=== PATIENT | female | born 1935 | race Caucasian/White ===

== ENCOUNTER 2016-09-08 18:10 | Emergency (ER) | payer MEDICARE, OTHER ==
[2016-09-08] MEDS ORDERED: 0.9% SODIUM CHLORIDE 250ML BAG IV ONE (19:23)
--- NOTE | 2016-09-08 19:29 | Emergency Department Record ---
History of Present Illness - General Chief Complaint: Fall Injury Stated Complaint: FALL INJURY PAIN RIGHT SHOULDER Time Seen by Provider: 09/08/16 18:23 Source: Family Mode of Arrival: Wheelchair - History of Present Illness Initial Comments: History per ; the patient is homebound in a wheelchair with strict instructions to not ambulate. While her was out of the room she decided to get up and make coffee in the kitchen when she fell. She was found minutes later by the complaining of right shoulder and right hip pain but alert and at her baseline, not more confused, and not diaphoretic. 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 He states she is on xaralto. She is responding to questions about where she hurts, denies hitting her head or neck pain. MD Complaint: Fall Onset/Timin -: Hour(s) Fall From: Standing When Fall Occurred: 1 hour MUSIC COMPOSER Fall Witnessed: No Place Fall Occurred: Home Loss of Consciousness: None Prolonged Down Time?: No Symptoms Prior to Fall: None Severity: Moderate Quality: Aching Context: Other Associated Symptoms: Unable to walk - Sarah Coma Scale Eye Response: (4) Open spontaneously Motor Response: (6) Obeys commands Verbal Response: (5) Oriented Amelia Total: 15 - Related Data Home Medications Medication Instructions Recorded Confirmed Last Taken Ascorbic Acid [Vitamin C] 1,000 mg PO BID 12/21/14 09/08/16 09/08/16 Cholecalciferol (Vitamin D3) 5,000 unit PO DAILY 12/21/14 09/08/16 09/08/16 [Vitamin D3] Cyanocobalamin (Vitamin B-12) 2,500 mcg SL DAILY 12/21/14 09/08/16 09/08/16 [Vitamin B-12] Losartan Potassium [Cozaar] 25 mg PO BID 12/21/14 09/08/16 09/08/16 Multivitamin [Multi-Vitamin Daily] 1 tab PO DAILY 12/21/14 09/08/16 09/08/16 Digoxin 125 mcg PO DAILY 02/04/15 09/08/16 09/08/16 Ferrous Sulfate [Iron] 325 mg PO DAILY 02/04/15 09/08/16 09/08/16 Gabapentin [Neurontin] 300 mg PO TID 02/04/15 09/08/16 09/08/16 Simvastatin [Zocor] 20 mg PO QHS 02/04/15 09/08/16 09/07/16 Polyethylene Glycol 3350 [Miralax] 17 gm PO DAILY 04/25/15 09/08/16 09/08/16 Rivaroxaban [Xarelto] 20 mg PO DAILY 04/25/15 09/08/16 09/08/16 Escitalopram Oxalate 10 mg PO QD tab 08/02/15 09/08/16 09/07/16 Famotidine 20 mg PO BID tab 08/02/15 09/08/16 09/08/16 Nitroglycerin 0.4 mg SL ONCE tab 08/02/15 09/08/16 1 Day Ago ~11/18/15 Insulin Glargine,Hum.rec.anlog 25 unit SQ ASDIR 11/19/15 09/08/16 09/08/16 [Lantus Solostar] Aspirin 81 mg PO QD tab.chew 09/04/16 09/08/16 09/08/16 Cranberry Fruit Extract [Cranberry] 500 mg PO DAILY tab 09/04/16 09/08/1609/08 Glucosamine Sulfate Dipot Chlr 1,500 mg PO DAILY tab 09/04/16 09/08/16 09/08/16 [Glucosamine] Niacinamide [Niacin] 500 mg PO DAILY tab 09/04/16 09/08/16 09/08/16 Raloxifene HCl [Evista] 60 mg PO DAILY tab 09/04/16 09/08/16 09/08/16 Ranolazine [Ranexa] 500 mg PO BID 14 Days 09/04/16 09/08/16 09/08/16 Rivastigmine [Exelon] 9.5 mg TD QD patch 09/04/16 09/08/16 09/08/16 Vitamin E (Dl,Tocopheryl Acet) 400 unit PO DAILY cap 09/04/16 09/08/16 09/08/16 [Vitamin E] Allergies Allergy/AdvReac Type Severity Reaction Status Date / Time lisinopril Allergy Mild cough Unverified 09/04/16 16:18 codeine Allergy Unknown PT UNSURE Unverified 09/04/16 16:18 OF REACTION meperidine HCl [From Demerol] Allergy Unknown PT UNSURE Unverified 09/04/16 16: 18 OF REACTION Penicillins Allergy Unknown PT UNSURE Unverified 09/04/16 16:18 OF REACTION Travel Screening - Travel/Exposure Within Last 30 Days Have you traveled within the last 30 days?: No - Travel Symptoms Symptom Screening: None Review of Systems Reviewed: No additional complaints except as noted below Constitutional: Reports: As per HPI. Denies: Chills, Fever, Malaise, Night sweats, Weakness, Weight change Eyes: Reports: As per HPI. Denies: Eye discharge, Eye pain, Photophobia, Vision change ENT: Reports: As per HPI. Denies: Congestion, Dental pain, Ear pain, Epistaxis , Hearing loss, Throat pain Respiratory: Reports: As per HPI. Denies: Cough, Dyspnea, Hemoptysis, Stridor, Wheezes Cardiovascular: Reports: As per HPI. Denies: Arrhythmia, Chest pain, Dyspnea on exertion, Edema, Murmurs, Orthopnea, Palpitations, Paroxysmal nocturnal dyspnea, Rheumatic Fever, Syncope Endocrine: Reports: As per HPI. Denies: Fatigue, Heat or cold intolerance, Polydipsia, Polyuria Gastrointestinal: Reports: As per HPI. Denies: Abdominal pain, Constipation, Diarrhea, Hematemesis, Hematochezia, Melena, Nausea, Vomiting Genitourinary: Reports: As per HPI. Denies: Abnormal menses, Discharge, Dyspareunia, Dysuria, Frequency, Hematuria, Incontinence, Retention, Urgency Musculoskeletal: Reports: As per HPI. Denies: Arthralgia, Back pain, Gout, Joint swelling, Myalgia, Neck pain Skin: Reports: As per HPI. Denies: Bruising, Change in color, Change in hair/ nails, Lesions, Pruritus, Rash Neurological: Reports: As per HPI. Denies: Abnormal gait, Confusion, Headache, Numbness, Paresthesias, Seizure, Tingling, Tremors, Vertigo, Weakness Psychiatric: Reports: As per HPI. Denies: Anxiety, Auditory hallucinations, Depression, Homicidal thoughts, Suicidal thoughts, Visual hallucinations Hematological/Lymphatic: Reports: As per HPI. Denies: Anemia, Blood Clots, Easy bleeding, Easy bruising, Swollen glands Past Medical History - SOCIAL HISTORY Smoking Status: Never smoker Drug Use: None - RESPIRATORY Hx Respiratory Disorders: No - CARDIOVASCULAR Hx Cardio Disorders: Yes Hx Chest Pain: Yes (double by-pass) Comment:: Aneurysm, serotonin fever post surgery 2015, in hospital 225 days - NEURO Hx Neuro Disorders: Yes Hx Dementia: Yes Hx TIA: Yes (1999) - GI Hx GI Disorders: No - Hx Genitourinary Disorders: Yes Hx Bladder Problem: Yes (Bladder mesh) Hx UTI: Yes - ENDOCRINE Hx Endocrine Disorders: Yes Hx Diabetes: Yes (type II) - MUSCULOSKELETAL Hx Musculoskeletal Disorders: Yes Hx Arthritis: Yes - PSYCH Hx Psych Problems: Yes Hx Depression: Yes - HEMATOLOGY/ONCOLOGY Hx Hematology/Oncology Disorders: No Family Medical History Hx Heart Disease: Mother Physical Exam - General General Appearance: Alert, Cooperative, No acute distress - Head Head exam: Atraumatic, Normal inspection Head exam detail: negative: Abrasion, Contusion, Britt's sign, CSF otorrhea, CSF rhinorrhea, General tenderness, Hematoma, Laceration, [place] eyes - Eye Eye exam: Normal appearance, PERRL Pupils: Normal accommodation - ENT ENT exam: Normal exam, Mucous membranes moist, Normal external ear exam, Normal orophraynx, TM's normal bilaterally Ear exam: Normal external inspection. negative: External canal tenderness Nasal Exam: Normal inspection. negative: Discharge, Sinus tenderness Mouth exam: Normal external inspection, Tongue normal Teeth exam: Normal inspection. negative: Dental caries Throat exam: Normal inspection. negative: Tonsillar erythema, Tonsillar exudate - Neck Neck exam: Normal inspection, Full ROM. negative: Lymphadenopathy, Meningismus , Tenderness - Respiratory Respiratory exam: Normal lung sounds bilaterally, Other (ribs nontender on palpation). negative: Chest wall tenderness, Respiratory distress - Cardiovascular Cardiovascular Exam: Regular rate, Normal rhythm, Normal heart sounds - GI/Abdominal GI/Abdominal exam: Soft, Normal bowel sounds. negative: Distended, Guarding, Rebound, Rigid, Tenderness - Rectal Rectal exam: Deferred - exam: Deferred - Extremities Extremities exam: Normal inspection, Full ROM, Normal capillary refill, Tenderness (Right shoulder diffusely tender with decrease ROM but normal distal CMS intact. Right hip region tender with beginnings of bruising; no shortening or external rotation noted. CMS intact distally; lower extremities nontender elsewhere.) - Back Back exam: Reports: Normal inspection, Full ROM. Denies: Muscle spasm, Rash noted, Tenderness - Neurological Neurological exam: Alert, Normal gait, Oriented X3, Reflexes normal - Psychiatric Psychiatric exam: Normal affect, Normal mood - Skin Skin exam: Dry, Intact, Normal color, Warm Course Vital Signs 09/08/16 19:14 Temperature 98.3 F Pulse Rate 78 Respiratory 20 Rate Blood Pressure 156/66 Pulse Ox 95 - Reevaluation(s) Reevaluation #1: Trauma activation called on this patient due to over 76 years of age, on blood thinner, and a fall. 09/08/16 19:51 Medical Decision Making - Management Options MDM Management: No Additional Work-up Planned - Data Complexity MDM Data: Labs Ordered and/or Reviewed, X-Ray Ordered and/or Reviewed ( Noncontrast CT's of Head, Cervical Spine, Abdomen/Pelvis: all with no acute abnormalities, no fractures or hemorrhages seen, and contusion to the soft tissues lateral to right hip with NO associated fractures seen. Right shoulder with no fx or dislocation. Numerous and multiple chronic abnormalitiers also noted on all studies. Per radiologist.), EKG Ordered and/or Reviewed - Lab Data Result diagrams: 09/08/16 19:45 09/08/16 19:45 - EKG Data -: EKG Interpreted by Me EKG: Unchanged From Previous (Prior of 12-07-[address] elevation with LVH.) Disposition Disposition: Discharge Clinical Impression: Fall from wheelchair Qualifiers: Encounter type: initial encounter Qualified Code(s): W05.0XXA - Fall from non- moving wheelchair, initial encounter Contusion of hip, right Qualifiers: Encounter type: initial encounter Qualified Code(s): S70.01XA - Contusion of right hip, initial encounter Contusion of shoulder, right Qualifiers: Encounter type: initial encounter Qualified Code(s): S40.011A - Contusion of right shoulder, initial encounter Disposition: Home, Self-Care Condition: (1) Good Instructions: Fall Prevention for Older Adults (ED), Contusion in Adults (ED) Additional Instructions: Ice to contusions as needed, especially first 48-72 hours. Continue present medications. Tylenol or ibuprofen as needed for pain, as directed. Take ibuprofen with food or antacid. Expect to be more painful on the second day with gradual improvement over 1-2 weeks. Follow up with PCP as needed. Forms: Patient Portal Access
[2016-09-08 19:58] LABS: URINE APPEARANCE CLEAR; URINE BILIRUBIN NEGATIVE (NEGATIVE); URINE BLOOD NEGATIVE (NEGATIVE); URINE COLOR YELLOW; URINE GLUCOSE (UA) NEGATIVE (NEGATIVE); URINE KETONE NEGATIVE (NEGATIVE); URINE LEUKOCYTE ESTERASE NEGATIVE (NEGATIVE); URINE NITRITE NEGATIVE (NEGATIVE); URINE PROTEIN NEGATIVE (NEGATIVE); URINE UROBILINOGEN 0.2 E.U./dL (0.20 - 1.00)
[2016-09-08 20:02] LABS: BASO % 0.3 % (0-6); EOS % 2.6 % (0-6); GRAN % 67.2 % (47-80); HEMATOCRIT 40.2 % (35.0-47.0); HEMOGLOBIN 13.1 gm/dl (11.6-16.0); LYMPH % 22.7 % (16-45); MEAN CELL VOLUME 91.6 fl (81-97); MEAN CORPUSCULAR HEMOGLOBIN 29.8 pg (27-33); MEAN CORPUSCULAR HGB CONC 32.6 g/dl (32-36); MEAN PLATELET VOLUME 10.2 fl (7.4-10.4); MONO % 7.2 % (0-9); PLATELET COUNT 168 K/uL (130-400); RED BLOOD COUNT 4.39 M/uL (3.80-5.40); RED CELL DISTRIBUTION WIDTH 12.6 % (11.5-14.5); WHITE BLOOD COUNT W/O DIFF 9.9 K/uL (4.2-12.2)
[2016-09-08 20:11] LABS: ALBUMIN 3.9 gm/dL (3.5-5.0); ALKALINE PHOSPHATASE 55 U/L (38-126); ALT/SGPT 36 U/L (9-52); AST/SGOT 29 U/L (14-36); BILIRUBIN,TOTAL 0.36 mg/dL (0.2-1.3); BLOOD UREA NITROGEN 17 mg/dL (7-17); CREATININE 0.8 mg/dL (0.52-1.04); EST GLOMERULAR FILTRATION RATE > 60 ml/min; GLUCOSE,RANDOM 196 mg/dL (70-110); INR 1.1; LIPASE 182 U/L (23-300); PARTIAL THROMBOPLASTIN TIME 30.5 SECONDS (24.5-39.1); PROTHROMBIN TIME (PATIENT) 12.4 SECONDS (9.5-12.1); TOTAL PROTEIN 6.5 gm/dL (6.3-8.2)
[2016-09-08] MEDS ORDERED: IBUPROFEN 600 MG TABLET PO ONE (21:18)
[2016-09-08] MEDS ORDERED: AL HYDROX/MAG HYDROX 30ML UD PO ONE (21:19)
== END 2016-09-08 21:44 | disposition home or self-care (01) ==
LOC: ER 18:10
DX: S70.01XA Contusion of right hip, initial encounter (principal); S40.011A Contusion of right shoulder, initial encounter; W05.0XXA Fall from non-moving wheelchair, initial encounter; Y92.009 Unspecified place in unspecified non-institutional (private) residence as the place of occurrence of the external cause; Z95.1 Presence of aortocoronary bypass graft; E11.9 Type 2 diabetes mellitus without complications; Z79.4 Long term (current) use of insulin; F03.90 Unspecified dementia, unspecified severity, without behavioral disturbance, psychotic disturbance, mood disturbance, and anxiety; Z79.01 Long term (current) use of anticoagulants; Z86.73 Personal history of transient ischemic attack (TIA), and cerebral infarction without residual deficits; Z83.79 Family history of other diseases of the digestive system
CPT/HCPCS: 70450; 72125; 74176; 80048; 80076; 81003; 83690; 85025; 85610; 85730; 93005; 93010; 99284

== ENCOUNTER 2016-10-02 23:48 | Emergency (ER) | payer MEDICARE, OTHER ==
[2016-10-03 00:08] LABS: HEMATOCRIT 39.2 % (35.0-47.0); HEMOGLOBIN 13.5 gm/dl (11.6-16.0); MEAN CORPUSCULAR HEMOGLOBIN 31.3 pg (27-33); MEAN CORPUSCULAR HGB CONC 34.4 g/dl (32-36); MEAN PLATELET VOLUME 9.9 fl (7.4-10.4); PLATELET COUNT 175 K/uL (130-400); RED BLOOD COUNT 4.31 M/uL (3.80-5.40); RED CELL DISTRIBUTION WIDTH 13.1 % (11.5-14.5); WHITE BLOOD COUNT W/O DIFF 11.4 K/uL (4.2-12.2)
[2016-10-03 00:19] LABS: ALB/GLOB RATIO 1.2 (1.1-1.8); ALKALINE PHOSPHATASE 91 U/L (38-126); ALT/SGPT 41 U/L (9-52); ANION GAP 10.7 (7-16); AST/SGOT 35 U/L (14-36); BILIRUBIN,TOTAL 0.53 mg/dL (0.2-1.3); BLOOD UREA NITROGEN 21 mg/dL (7-17); CARBON DIOXIDE 23.3 mmol/L (22-30); CREATINE PHOSPHOKINASE 39 U/L (30-135); CREATININE 0.7 mg/dL (0.52-1.04); EST GLOMERULAR FILTRATION RATE > 60 ml/min; GLUCOSE,RANDOM 337 mg/dL (70-110); TOTAL PROTEIN 7.3 gm/dL (6.3-8.2)
[2016-10-03] MEDS: ASPIRIN 81 MG CHEWABLE TABLET PO ONE (00:28)
[2016-10-03 00:32] LABS: CKMB 2.7 ug/L (0-6); TROPONIN I 0.076 ng/mL (0.00-0.034)
--- NOTE | 2016-10-03 01:01 | Emergency Department Record ---
History of Present Illness - General Chief Complaint: Chest Pain Stated Complaint: CHEST PAIN/VOMITING Time Seen by Provider: 10/02/16 23:55 Source: Patient Mode of Arrival: EMS Limitations: No limitations - History of Present Illness Initial Comments: pt had chest pain that went away w ntg. after an hour. it radiated to her l arm. she vomited twice. pt has an extensive cardiac hx with stents, cabg and valve replacement.. Complaint: Chest pain Onset/Timin -: Hour(s) Onset: During rest Pain Location: Left chest, Right chest Pain Radiation: None Severity: Mild Severity scale (1-10): 8 Quality: Heaviness Consistency: Now resolved Worsens With: Nothing Anginal Symptoms: Nausea, Vomiting Treatments Prior to Arrival: Nitroglycerin - Related Data Home Medications Medication Instructions Recorded Confirmed Last Taken Ascorbic Acid [Vitamin C] 1,000 mg PO BID 12/21/14 10/03/16 09/08/16 Cholecalciferol (Vitamin D3) 5,000 unit PO DAILY 12/21/14 10/03/16 09/08/16 [Vitamin D3] Cyanocobalamin (Vitamin B-12) 2,500 mcg SL DAILY 12/21/14 10/03/16 09/08/16 [Vitamin B-12] Losartan Potassium [Cozaar] 25 mg PO BID 12/21/14 10/03/16 09/08/16 Multivitamin [Multi-Vitamin Daily] 1 tab PO DAILY 12/21/14 10/03/16 09/08/16 Digoxin 125 mcg PO DAILY 02/04/15 10/03/16 09/08/16 Ferrous Sulfate [Iron] 325 mg PO DAILY 02/04/15 10/03/16 09/08/16 Gabapentin [Neurontin] 300 mg PO TID 02/04/15 10/03/16 09/08/16 Simvastatin [Zocor] 20 mg PO QHS 02/04/15 10/03/16 09/07/16 Polyethylene Glycol 3350 [Miralax] 17 gm PO DAILY 04/25/15 10/03/16 09/08/16 Rivaroxaban [Xarelto] 20 mg PO DAILY 04/25/15 10/03/16 09/08/16 Escitalopram Oxalate 10 mg PO QD tab 08/02/15 10/03/16 09/07/16 Famotidine 20 mg PO BID tab 08/02/15 10/03/16 09/08/16 Nitroglycerin 0.4 mg SL ONCE tab 08/02/15 10/03/16 1 Day Ago ~11/18/15 Insulin Glargine,Hum.rec.anlog 25 unit SQ ASDIR 11/19/15 10/03/16 09/08/16 [Lantus Solostar] Aspirin 81 mg PO QD tab.chew 09/04/16 10/03/16 09/08/16 Cranberry Fruit Extract [Cranberry] 500 mg PO DAILY tab 09/04/16 10/03/1609/08 Glucosamine Sulfate Dipot Chlr 1,500 mg PO DAILY tab 09/04/16 10/03/16 09/08/16 [Glucosamine] Niacinamide [Niacin] 500 mg PO DAILY tab 09/04/16 10/03/16 09/08/16 Raloxifene HCl [Evista] 60 mg PO DAILY tab 09/04/16 10/03/16 09/08/16 Ranolazine [Ranexa] 500 mg PO BID 14 Days 09/04/16 10/03/16 09/08/16 Rivastigmine [Exelon] 9.5 mg TD QD patch 09/04/16 10/03/16 09/08/16 Vitamin E (Dl,Tocopheryl Acet) 400 unit PO DAILY cap 09/04/16 10/03/16 09/08/16 [Vitamin E] Allergies Allergy/AdvReac Type Severity Reaction Status Date / Time lisinopril Allergy Mild cough Unverified 09/04/16 16:18 codeine Allergy Unknown PT UNSURE Unverified 09/04/16 16:18 OF REACTION meperidine HCl [From Demerol] Allergy Unknown PT UNSURE Unverified 09/04/16 16: 18 OF REACTION Penicillins Allergy Unknown PT UNSURE Unverified 09/04/16 16:18 OF REACTION Travel Screening - Travel/Exposure Within Last 30 Days Have you traveled within the last 30 days?: No - Travel/Exposure Within Last Year Have you traveled outside the [place] in the last year?: No - Additonal Travel Details Have you been exposed to anyone with a communicable illness?: No - Travel Symptoms Symptom Screening: None Review of Systems Reviewed: No additional complaints except as noted below Constitutional: Reports: As per HPI. Denies: Chills, Fever, Malaise, Night sweats, Weakness, Weight change Eyes: Reports: As per HPI. Denies: Eye discharge, Eye pain, Photophobia, Vision change ENT: Reports: As per HPI. Denies: Congestion, Dental pain, Ear pain, Epistaxis , Hearing loss, Throat pain Respiratory: Reports: As per HPI. Denies: Cough, Dyspnea, Hemoptysis, Stridor, Wheezes Cardiovascular: Reports: As per HPI. Denies: Arrhythmia, Chest pain, Dyspnea on exertion, Edema, Murmurs, Orthopnea, Palpitations, Paroxysmal nocturnal dyspnea, Rheumatic Fever, Syncope Endocrine: Reports: As per HPI. Denies: Fatigue, Heat or cold intolerance, Polydipsia, Polyuria Gastrointestinal: Reports: As per HPI. Denies: Abdominal pain, Constipation, Diarrhea, Hematemesis, Hematochezia, Melena, Nausea, Vomiting Genitourinary: Reports: As per HPI. Denies: Abnormal menses, Discharge, Dyspareunia, Dysuria, Frequency, Hematuria, Incontinence, Retention, Urgency Musculoskeletal: Reports: As per HPI. Denies: Arthralgia, Back pain, Gout, Joint swelling, Myalgia, Neck pain Skin: Reports: As per HPI. Denies: Bruising, Change in color, Change in hair/ nails, Lesions, Pruritus, Rash Neurological: Reports: As per HPI. Denies: Abnormal gait, Confusion, Headache, Numbness, Paresthesias, Seizure, Tingling, Tremors, Vertigo, Weakness Psychiatric: Reports: As per HPI. Denies: Anxiety, Auditory hallucinations, Depression, Homicidal thoughts, Suicidal thoughts, Visual hallucinations Hematological/Lymphatic: Reports: As per HPI. Denies: Anemia, Blood Clots, Easy bleeding, Easy bruising, Swollen glands Past Medical History - SOCIAL HISTORY Smoking Status: Never smoker Alcohol Use: None Drug Use: None - RESPIRATORY Hx Respiratory Disorders: No - CARDIOVASCULAR Hx Cardio Disorders: Yes Hx Chest Pain: Yes (double by-pass) Comment:: Aneurysm, serotonin fever post surgery 2014, in hospital 225 days - NEURO Hx Neuro Disorders: Yes Hx Dementia: Yes Hx TIA: Yes (1999) - GI Hx GI Disorders: No - Hx Genitourinary Disorders: Yes Hx Bladder Problem: Yes (Bladder mesh) Hx UTI: Yes - ENDOCRINE Hx Endocrine Disorders: Yes Hx Diabetes: Yes (type II) - MUSCULOSKELETAL Hx Musculoskeletal Disorders: Yes Hx Arthritis: Yes - PSYCH Hx Psych Problems: Yes Hx Depression: Yes - HEMATOLOGY/ONCOLOGY Hx Hematology/Oncology Disorders: No Family Medical History Any Significant Family History?: No Hx Heart Disease: Mother Physical Exam - General General Appearance: Alert, Oriented x3, Cooperative, Mild distress - Head Head exam: Normal inspection - Eye Eye exam: Normal appearance, PERRL, EOMI Pupils: Normal accommodation - ENT ENT exam: Normal exam, Mucous membranes moist, Normal external ear exam, Normal orophraynx, TM's normal bilaterally Ear exam: Normal external inspection. negative: External canal tenderness Nasal Exam: Normal inspection. negative: Discharge, Sinus tenderness Mouth exam: Normal external inspection, Tongue normal Teeth exam: Normal inspection. negative: Dental caries Throat exam: Normal inspection. negative: Tonsillar erythema, Tonsillar exudate - Neck Neck exam: Normal inspection, Full ROM. negative: Tenderness - Respiratory Respiratory exam: Normal lung sounds bilaterally. negative: Respiratory distress - Cardiovascular Cardiovascular Exam: Regular rate, Normal rhythm, Normal heart sounds - GI/Abdominal GI/Abdominal exam: Soft, Normal bowel sounds. negative: Tenderness - Rectal Rectal exam: Deferred - exam: Deferred - Extremities Extremities exam: Normal inspection, Full ROM, Normal capillary refill. negative: Tenderness - Back Back exam: Reports: Normal inspection, Full ROM. Denies: Muscle spasm, Rash noted, Tenderness - Neurological Neurological exam: Alert, CN II-XII intact, Normal gait, Oriented X3 - Psychiatric Psychiatric exam: Normal affect, Normal mood - Skin Skin exam: Dry, Intact, Normal color, Warm Course Vital Signs 10/02/16 10/03/16 23:56 00:53 Temperature 98.3 F Pulse Rate 96 H Pulse Rate [ 91 H Coater Associate ] Respiratory 20 20 Rate Blood Pressure 153/79 Blood Pressure 143/60 [Left Arm] Pulse Ox 93 L 97 - Reevaluation(s) Reevaluation #1: 10/03/16 01:07 pt remained pain free Medical Decision Making - Lab Data Result diagrams: 10/02/16 00:00 10/02/16 00:00 Lab Results 10/02/16 10/02/16 10/02/16 Range/Units 00:00 00:00 00:00 WBC 11.4 (4.2-12.2) K/uL RBC 4.31 (3.80-5.40) M/uL Hgb 13.5 (11.6-16.0) gm/dl Hct 39.2 (35.0-47.0) % MCV 91.0 (81-97) fl MCH 31.3 (27-33) pg MCHC 34.4 (32-36) g/dl RDW 13.1 (11.5-14.5) % Plt Count 175 (130-400) K/uL MPV 9.9 (7.4-10.4) fl Neutrophils % 68.0 (47-80) % Band Neutrophils % 0.0 (0-5) % Eosinophils % Not Reportable Basophils % Not Reportable Lymphocytes 22.0 (16-45) % Monocytes 7.0 (0-9) % Basophils 0.0 (0-6) % Eosinophil Count 3.0 (0-6) % D-Dimer 0.77 H (0-0.59) mg/L FEU Sodium 133 L (136-145) mmol/L Potassium 4.9 (3.5-5.1) mmol/L Chloride 99 (98-107) mmol/L Carbon Dioxide 23.3 (22-30) mmol/L Anion Gap 10.7 (7-16) BUN 21 H (7-17) mg/dL Creatinine 0.7 (0.52-1.04) mg/dL Estimated GFR > 60 ml/min Random Glucose 337 H (70-110) mg/dL Calcium 8.5 (8.5-10.1) mg/dL Total Bilirubin 0.53 (0.2-1.3) mg/dL AST 35 (14-36) U/L ALT 41 (9-52) U/L Alkaline Phosphatase 91 (38-126) U/L Creatine Kinase 39 (30-135) U/L CK-MB (CK-2) 2.7 (0-6) ug/L Troponin I 0.076 H (0.00-0.034) ng/mL NT-Pro-B Natriuret Pep 593.00 H (<450) pg/mL Total Protein 7.3 (6.3-8.2) gm/dL Albumin 4.0 (3.5-5.0) gm/dL Globulin 3.3 (1.4-4.8) gm/dL Albumin/Globulin Ratio 1.2 (1.1-1.8) Disposition Disposition: Transfer Clinical Impression: Chest pain Qualifiers: Chest pain type: other chest pain Qualified Code(s): R07.89 - Other chest pain Disposition: Acute Care Hospital Transfer Transfer To: [facility] Reason For Transfer: needs casket trimmer Accepting Physician: dr melanie branch Time Discussed w/Accepting Physician: 01:21 Forms: Patient Portal Access
--- NOTE | 2016-10-04 07:29 | RADIOLOGY REPORT ---
EXAM: PORTABLE CHEST HISTORY: CHEST PAIN BEGINNING TONIGHT. TECHNIQUE: A single mobile semi-erect view of the chest was obtained. Comparison: Portable chest dated 02/04/15. FINDINGS: The examination is limited with the lung apices not included on the image. Post median sternotomy changes identified. The heart is mildly enlarged without pulmonary venous hypertension. Mild elevation of the right hemidiaphragm is present. No definite lung consolidation is seen though the retrocardiac left lung base is not optimally visualized due to underpenetration. No costophrenic angle blunting nor evidence of large pneumothorax. IMPRESSION: 1. LIMITED PORTABLE EXAMINATION. 2. POST MEDIAN STERNOTOMY CHANGES. 3. MILD CARDIOMEGALY WITHOUT PULMONARY VENOUS HYPERTENSION. 4. NO DEFINITE EVIDENCE OF AN ACUTE PULMONARY PROCESS THOUGH THE LEFT LUNG BASE IS NOT WELL VISUALIZED DUE TO UNDERPENETRATION. JOB NUMBER: [id number] MTDD
== END 2016-10-03 04:32 | disposition short-term general hospital (02) ==
LOC: ER 23:48
DX: R07.89 Other chest pain (principal); R11.2 Nausea with vomiting, unspecified; E11.9 Type 2 diabetes mellitus without complications; Z79.4 Long term (current) use of insulin; Z95.2 Presence of prosthetic heart valve; Z79.01 Long term (current) use of anticoagulants; Z95.1 Presence of aortocoronary bypass graft; Z86.73 Personal history of transient ischemic attack (TIA), and cerebral infarction without residual deficits
CPT/HCPCS: 71010; 80053; 82550; 82553; 83880; 84484; 85027; 85379; 93005; 93010; 99285

== ENCOUNTER 2016-10-12 14:54 | Emergency (ER) | payer MEDICARE, OTHER ==
--- NOTE | 2016-10-12 15:58 | Emergency Department Record ---
History of Present Illness - General Chief complaint: ENT Stated complaint: BLOOD COMING FROM LEFT EAR Time Seen by Provider: 10/12/16 15:20 Source: Patient, Family Mode of Arrival: Wheelchair Limitations: No limitations - History of Present Illness Initial comments: pt woke up with blood running out of ear. pt knows of no injury. there is no pain. pt wears hearing aids Onset/Timin -: Hour(s) Location: L ear Improves with: None Worsens with: None Context-Epistaxis: Aspirin use Associated Symptoms: Discharge from ear - Related Data Home Medications Medication Instructions Recorded Confirmed Last Taken Ascorbic Acid [Vitamin C] 1,000 mg PO BID 12/21/14 10/12/16 10/12/16 Cholecalciferol (Vitamin D3) 5,000 unit PO DAILY 12/21/14 10/12/16 10/12/16 [Vitamin D3] Cyanocobalamin (Vitamin B-12) 2,500 mcg SL DAILY 12/21/14 10/12/16 10/12/16 [Vitamin B-12] Losartan Potassium [Cozaar] 25 mg PO BID 12/21/14 10/12/16 10/12/16 Multivitamin [Multi-Vitamin Daily] 1 tab PO DAILY 12/21/14 10/12/16 10/12/16 Digoxin 125 mcg PO DAILY 02/04/15 10/12/16 10/12/16 Ferrous Sulfate [Iron] 325 mg PO DAILY 02/04/15 10/12/16 10/12/16 Gabapentin [Neurontin] 300 mg PO TID 02/04/15 10/12/16 10/12/16 Simvastatin [Zocor] 20 mg PO QHS 02/04/15 10/12/16 10/12/16 Polyethylene Glycol 3350 [Miralax] 17 gm PO DAILY 04/25/15 10/12/16 10/12/16 Rivaroxaban [Xarelto] 20 mg PO DAILY 04/25/15 10/12/16 10/12/16 Escitalopram Oxalate 10 mg PO QD tab 08/02/15 10/12/16 10/12/16 Famotidine 20 mg PO BID tab 08/02/15 10/12/16 10/12/16 Nitroglycerin 0.4 mg SL ONCE tab 08/02/15 10/12/16 10/12/16 Insulin Glargine,Hum.rec.anlog 25 unit SQ ASDIR 11/19/15 10/12/16 10/12/16 [Lantus Solostar] Aspirin 81 mg PO QD tab.chew 09/04/16 10/12/16 10/12/16 Cranberry Fruit Extract [Cranberry] 500 mg PO DAILY tab 09/04/16 10/12/1610/12 Glucosamine Sulfate Dipot Chlr 1,500 mg PO DAILY tab 09/04/16 10/12/16 10/12/16 [Glucosamine] Niacinamide [Niacin] 500 mg PO DAILY tab 09/04/16 10/12/16 10/12/16 Raloxifene HCl [Evista] 60 mg PO DAILY tab 09/04/16 10/12/16 10/12/16 Ranolazine [Ranexa] 500 mg PO BID 14 Days 09/04/16 10/12/16 10/12/16 Rivastigmine [Exelon] 9.5 mg TD QD patch 09/04/16 10/12/16 10/12/16 Vitamin E (Dl,Tocopheryl Acet) 400 unit PO DAILY cap 09/04/16 10/12/16 10/12/16 [Vitamin E] Allergies Allergy/AdvReac Type Severity Reaction Status Date / Time lisinopril Allergy Mild cough Verified 10/12/16 14:58 codeine Allergy Unknown PT UNSURE Verified 10/12/16 14:58 OF REACTION meperidine HCl [From Demerol] Allergy Unknown PT UNSURE Verified 10/12/16 14:58 OF REACTION Penicillins Allergy Unknown PT UNSURE Verified 10/12/16 14:58 OF REACTION Travel Screening - Travel/Exposure Within Last 30 Days Have you traveled within the last 30 days?: No - Travel/Exposure Within Last Year Have you traveled outside the [place] in the last year?: No - Additonal Travel Details Have you been exposed to anyone with a communicable illness?: No - Travel Symptoms Symptom Screening: None Review of Systems Reviewed: No additional complaints except as noted below Constitutional: Reports: As per HPI. Denies: Chills, Fever, Malaise, Night sweats, Weakness, Weight change Eyes: Reports: As per HPI. Denies: Eye discharge, Eye pain, Photophobia, Vision change ENT: Reports: As per HPI. Denies: Congestion, Dental pain, Ear pain, Epistaxis , Hearing loss, Throat pain Respiratory: Reports: As per HPI. Denies: Cough, Dyspnea, Hemoptysis, Stridor, Wheezes Cardiovascular: Reports: As per HPI. Denies: Arrhythmia, Chest pain, Dyspnea on exertion, Edema, Murmurs, Orthopnea, Palpitations, Paroxysmal nocturnal dyspnea, Rheumatic Fever, Syncope Endocrine: Reports: As per HPI. Denies: Fatigue, Heat or cold intolerance, Polydipsia, Polyuria Gastrointestinal: Reports: As per HPI. Denies: Abdominal pain, Constipation, Diarrhea, Hematemesis, Hematochezia, Melena, Nausea, Vomiting Genitourinary: Reports: As per HPI. Denies: Abnormal menses, Discharge, Dyspareunia, Dysuria, Frequency, Hematuria, Incontinence, Retention, Urgency Musculoskeletal: Reports: As per HPI. Denies: Arthralgia, Back pain, Gout, Joint swelling, Myalgia, Neck pain Skin: Reports: As per HPI. Denies: Bruising, Change in color, Change in hair/ nails, Lesions, Pruritus, Rash Neurological: Reports: As per HPI. Denies: Abnormal gait, Confusion, Headache, Numbness, Paresthesias, Seizure, Tingling, Tremors, Vertigo, Weakness Psychiatric: Reports: As per HPI. Denies: Anxiety, Auditory hallucinations, Depression, Homicidal thoughts, Suicidal thoughts, Visual hallucinations Hematological/Lymphatic: Reports: As per HPI. Denies: Anemia, Blood Clots, Easy bleeding, Easy bruising, Swollen glands Past Medical History - SOCIAL HISTORY Smoking Status: Never smoker Alcohol Use: None Drug Use: None - RESPIRATORY Hx Respiratory Disorders: No - CARDIOVASCULAR Hx Cardio Disorders: Yes Hx Chest Pain: Yes (double by-pass) Comment:: Aneurysm, serotonin fever post surgery 2014, in hospital 225 days - NEURO Hx Neuro Disorders: Yes Hx Dementia: Yes Hx TIA: Yes (1999) - GI Hx GI Disorders: No - Hx Genitourinary Disorders: Yes Hx Bladder Problem: Yes (Bladder mesh) Hx UTI: Yes - ENDOCRINE Hx Endocrine Disorders: Yes Hx Diabetes: Yes (type II) - MUSCULOSKELETAL Hx Musculoskeletal Disorders: Yes Hx Arthritis: Yes - PSYCH Hx Psych Problems: Yes Hx Depression: Yes - HEMATOLOGY/ONCOLOGY Hx Hematology/Oncology Disorders: No Family Medical History Any Significant Family History?: Yes Hx Heart Disease: Mother Physical Exam - General General Appearance: Alert, Oriented x3, Cooperative, Mild distress - Head Head exam: Normal inspection - Eye Eye exam: Normal appearance, PERRL, EOMI Pupils: Normal accommodation - ENT ENT exam: Normal exam, Mucous membranes moist, Normal external ear exam, Normal orophraynx, TM's normal bilaterally Ear exam: Other (blood in canal, small abrasion). negative: External canal tenderness Nasal Exam: Normal inspection. negative: Discharge, Sinus tenderness Mouth exam: Normal external inspection, Tongue normal Teeth exam: Normal inspection. negative: Dental caries Throat exam: Normal inspection. negative: Tonsillar erythema, Tonsillar exudate - Neck Neck exam: Normal inspection, Full ROM. negative: Tenderness - Respiratory Respiratory exam: Normal lung sounds bilaterally. negative: Respiratory distress - Cardiovascular Cardiovascular Exam: Regular rate, Normal rhythm, Normal heart sounds - GI/Abdominal GI/Abdominal exam: Soft, Normal bowel sounds. negative: Tenderness - Rectal Rectal exam: Deferred - exam: Deferred - Extremities Extremities exam: Normal inspection, Full ROM, Normal capillary refill. negative: Tenderness - Back Back exam: Reports: Normal inspection, Full ROM. Denies: Muscle spasm, Rash noted, Tenderness - Neurological Neurological exam: Alert, CN II-XII intact, Normal gait, Oriented X3, Reflexes normal - Psychiatric Psychiatric exam: Normal affect, Normal mood - Skin Skin exam: Dry, Intact, Normal color, Warm Course Vital Signs 10/12/16 15:03 Temperature 98.1 F Pulse Rate 66 Respiratory 20 Rate Blood Pressure 148/54 Pulse Ox 96 Disposition Disposition: Discharge Clinical Impression: Ear canal abrasion Qualifiers: Encounter type: initial encounter Laterality: left Qualified Code(s): S00.412A - Abrasion of left ear, initial encounter Disposition: Home, Self-Care Condition: (1) Good Instructions: Abrasion (ED), Otitis Externa (ED) Additional Instructions: follow up with family doctor. return sooner if worse. cortisprin drops 4 times a day for 5 days. dont wear hearing aid for 5 days Forms: Patient Portal Access
[2016-10-12] MEDS: NEOMYCIN/POLYMYXIN B SULF/HC 10ML BTL OT ONE (16:11)
== END 2016-10-12 16:12 | disposition home or self-care (01) ==
LOC: ER 14:54
DX: S00.412A Abrasion of left ear, initial encounter (principal); X58.XXXA Exposure to other specified factors, initial encounter
CPT/HCPCS: 99282

== ENCOUNTER 2017-10-18 11:43 | Emergency (ER) | payer MEDICARE, OTHER ==
--- NOTE | 2017-10-18 12:05 | Emergency Department Record ---
History of Present Illness - General Chief complaint: Female Urogenital Problem Stated complaint: UTI Time Seen by Provider: 10/18/17 11:51 Source: Family Mode of Arrival: Wheelchair Limitations: Physical limitation - History of Present Illness Initial comments: The patient is here with her who is her caregiver. He states she has had 3 days of cloudy urine and has had intermittent vomiting. There has been no AP, back pain, CP, SOB, or fever. The patient's states she has had problems like this in the past and she does have a standing order for a urine in the lab but due to her physical condition (non-ambulatory and chronic confusion) she was sent to the ER for a cath UA. He denies any new medicines or any recent trauma. MD Complaint: Dysuria Onset/Timin -: Days(s) Severity: Mild Severity scale (1-10): 3 - Related Data Home Medications Medication Instructions Recorded Confirmed Last Taken Amlodipine Besylate 5 mg PO QAM 10/18/17 10/18/17 1 Day Ago ~10/17/17 Carbidopa/Levodopa [Carbidopa-Levo 1.5 each PO TID 10/18/17 10/18/17 1 Day Ago 25-100 mg Odt] ~10/17/17 Previous Rx's Medication Instructions Recorded Cephalexin [Keflex] 500 mg PO TID #21 cap 10/18/17 Allergies Allergy/AdvReac Type Severity Reaction Status Date / Time lisinopril Allergy Mild cough Verified 10/18/17 11:51 codeine Allergy Unknown PT UNSURE Verified 10/18/17 11:51 OF REACTION meperidine HCl [From Demerol] Allergy Unknown PT UNSURE Verified 10/18/17 11:51 OF REACTION Penicillins Allergy Unknown PT UNSURE Verified 10/18/17 11:51 OF REACTION Travel Screening - Travel/Exposure Within Last 30 Days Have you traveled within the last 30 days?: No - Travel/Exposure Within Last Year Have you traveled outside the [place] in the last year?: No - Additonal Travel Details Have you been exposed to anyone with a communicable illness?: No - Travel Symptoms Symptom Screening: None Review of Systems Constitutional: Denies: Chills, Fever Eyes: Denies: Eye discharge ENT: Denies: Congestion Respiratory: Denies: Cough, Dyspnea Past Medical History - SOCIAL HISTORY Smoking Status: Never smoker Alcohol Use: None Drug Use: None - RESPIRATORY Hx Respiratory Disorders: No - CARDIOVASCULAR Hx Cardio Disorders: Yes Hx Chest Pain: Yes (double by-pass) Comment:: Aneurysm, serotonin fever post surgery 2015, in hospital 225 days - NEURO Hx Neuro Disorders: Yes Hx Dementia: Yes Hx TIA: Yes (1999) - GI Hx GI Disorders: No - Hx Genitourinary Disorders: Yes Hx Bladder Problem: Yes (Bladder mesh) Hx UTI: Yes - ENDOCRINE Hx Endocrine Disorders: Yes Hx Diabetes: Yes (type II) - MUSCULOSKELETAL Hx Musculoskeletal Disorders: Yes Hx Arthritis: Yes - PSYCH Hx Psych Problems: Yes Hx Depression: Yes - HEMATOLOGY/ONCOLOGY Hx Hematology/Oncology Disorders: No Family Medical History Any Significant Family History?: Yes Hx Heart Disease: Mother Physical Exam - General General Appearance: Alert, No acute distress - Head Head exam: Atraumatic, Normocephalic - Eye Eye exam: Normal appearance, PERRL - Neck Neck exam: Normal inspection, Full ROM. negative: Tenderness - Respiratory Respiratory exam: Normal lung sounds bilaterally. negative: Respiratory distress - Cardiovascular Cardiovascular Exam: Irregular rhythm. negative: Regular rate, Normal rhythm - GI/Abdominal GI/Abdominal exam: Soft, Normal bowel sounds. negative: Tenderness - Extremities Extremities exam: Normal inspection, Full ROM, Normal capillary refill. negative: Tenderness - Neurological Neurological exam: Alert. negative: Motor sensory deficit, Oriented X3 (The patient is oriented to name only (chronic per )) Course Vital Signs 10/18/17 11:46 Temperature 98.2 F Pulse Rate 79 Respiratory 18 Rate Blood Pressure 150/66 Pulse Ox 97 - Reevaluation(s) Reevaluation #1: The patient is doing very well at this time. She is taking fluids well with no vomiting and denies any AP. I did discuss the lab results with the patient and the need for F/U and treatment for the UTI. 10/18/17 13:36 Medical Decision Making - Data Complexity MDM Data: Labs Ordered and/or Reviewed - Lab Data Result diagrams: 10/18/17 12:12 10/18/17 12:12 Disposition Disposition: Discharge Clinical Impression: UTI (urinary tract infection) Qualifiers: Urinary tract infection type: acute cystitis Hematuria presence: without hematuria Qualified Code(s): N30.00 - Acute cystitis without hematuria Disposition: Home, Self-Care Condition: (2) Stable Instructions: Urinary Tract Infection in Women (ED) Additional Instructions: Please take the Keflex as directed and use the Zofran for nausea if needed. Please see your family doctor for recheck next week and return to the ER for any worsening symptoms or pain. Prescriptions: Cephalexin [Keflex] 500 mg PO TID #21 cap Forms: Patient Portal Access Time of Disposition: 13:38 Quality - Quality Measures Quality Measures: N/A - Blood Pressure Screening View Details: Yes Does Patient Have Any of the Following: No Blood Pressure Classification: Hypertensive Reading Systolic Measurement: 150 Diastolic Measurement: 66 Screening for High Blood Pressure: < First Hypertensive BP, F/U Documented > [ G8950] First Hypertensive Follow-up Interventions: Referral to alternative/primary care provider.
[2017-10-18 12:17] LABS: BASO % 0.2 % (0-6); EOS % 1.4 % (0-6); GRAN % 66.7 % (47-80); HEMATOCRIT 36.6 % (35.0-47.0); LYMPH % 24.4 % (16-45); MEAN CELL VOLUME 91.7 fl (81-97); MEAN CORPUSCULAR HEMOGLOBIN 30.1 pg (27-33); MEAN CORPUSCULAR HGB CONC 32.8 g/dl (32-36); MEAN PLATELET VOLUME 8.8 fl (7.4-10.4); MONO % 7.3 % (0-9); PLATELET COUNT 185 K/uL (130-400); RED BLOOD COUNT 3.99 M/uL (3.80-5.40); RED CELL DISTRIBUTION WIDTH 13.1 % (11.5-14.5); WHITE BLOOD COUNT W/O DIFF 11.3 K/uL (4.2-12.2)
[2017-10-18 12:26] LABS: URINE APPEARANCE CLOUDY; URINE BILIRUBIN NEGATIVE (NEGATIVE); URINE BLOOD TRACE-I (NEGATIVE); URINE COLOR YELLOW; URINE GLUCOSE (UA) NEGATIVE (NEGATIVE); URINE KETONE NEGATIVE (NEGATIVE); URINE LEUKOCYTE ESTERASE LARGE (NEGATIVE); URINE NITRITE NEGATIVE (NEGATIVE); URINE PROTEIN TRACE (NEGATIVE); URINE UROBILINOGEN 0.2 E.U./dL (0.20 - 1.00)
[2017-10-18 12:30] LABS: INR 1.2; PARTIAL THROMBOPLASTIN TIME 32.6 SECONDS (24.5-39.1); PROTHROMBIN TIME (PATIENT) 13.4 SECONDS (9.5-12.1)
[2017-10-18 12:31] LABS: BLOOD UREA NITROGEN 13 mg/dL (8-23)
[2017-10-18 12:32] LABS: CREATININE 0.7 mg/dL (0.5-0.9); EST GLOMERULAR FILTRATION RATE > 60 mL/min; TOTAL PROTEIN 6.8 g/dL (6.6-8.7)
[2017-10-18 12:34] LABS: GLUCOSE,RANDOM 171 mg/dL (74-109)
[2017-10-18 12:37] LABS: ALB/GLOB RATIO 1.6 (1.1-1.8); ALBUMIN 4.2 g/dL (4.0-5.0); ALKALINE PHOSPHATASE 44 U/L (35-104); ALT/SGPT 12 U/L (<33); AST/SGOT 17 U/L (10.0-35.0)
[2017-10-18 12:38] LABS: URINE RBC 0 - 2 (NONE SEEN); URINE RENAL EPITHELIAL CELLS 0 - 2 /hpf; URINE SQUAMOUS EPITHELIAL CELL 0 - 2 /hpf; URINE WBC 36 - 50 (0-2/hpf)
[2017-10-18 12:39] LABS: URINE BACTERIA 4+
[2017-10-18] MEDS ORDERED: CEFTRIAXONE SODIUM 1 GM in 0.9 % SODIUM CHLORIDE 100ML 100 ML IVPB ONE (12:45)
== END 2017-10-18 13:57 | disposition home or self-care (01) ==
LOC: ER 11:43
DX: N30.00 Acute cystitis without hematuria (principal); R11.11 Vomiting without nausea; E11.9 Type 2 diabetes mellitus without complications; Z86.73 Personal history of transient ischemic attack (TIA), and cerebral infarction without residual deficits; Z79.4 Long term (current) use of insulin; Z79.01 Long term (current) use of anticoagulants
CPT/HCPCS: 80053; 80162; 81001; 85025; 85610; 85730; 96365; 99284

== ENCOUNTER 2018-01-03 18:20 | Emergency (ER) | payer MEDICARE, OTHER ==
[2018-01-03] MEDS ORDERED: 0.9 % SODIUM CHLORIDE 1000ML 2,000 ML IV SCH (18:30)
--- NOTE | 2018-01-03 18:35 | Emergency Department Record ---
History of Present Illness - General Stated Complaint: LOC,LOW SUGAR Time Seen by Provider: 01/03/18 18:27 Source: EMS Mode of Arrival: EMS Limitations: Altered mental status - History of Present Illness Initial Comments: 82 yo female presents to ED for evaluation of low blood sugar, alteration in consciousness, and low blood pressure. Per EMS, patient's SO called EMS for decreased responsiveness. Patient was seen earlier today at her PCP's office, diagnosed with UTI. EMS reports initial glucose of 38 on scene, D50 given with increased BS to 219. MD Complaint: Altered mental status -: Unknown Severity: Severe Consistency: Constant - Oneco Coma Scale Eye Response: (3) Open to voice Motor Response: (6) Obeys commands Verbal Response: (1) No verbal response Oneco Total: 10 - Related Data Previous Rx's Medication Instructions Recorded Sulfamethoxazole/Trimethoprim 1 tab PO BID #14 tab 12/28/17 [Bactrim Ds] Allergies Allergy/AdvReac Type Severity Reaction Status Date / Time lisinopril Allergy Mild cough Unverified 01/03/18 19:55 codeine Allergy Unknown PT UNSURE Unverified 01/03/18 19:55 OF REACTION meperidine HCl [From Demerol] Allergy Unknown PT UNSURE Unverified 01/03/18 19: 55 OF REACTION Penicillins Allergy Unknown RASH Unverified 01/03/18 19:55 Review of Systems ROS unobtainable: Due to mental status Past Medical History - SOCIAL HISTORY Smoking Status: Never smoker Drug Use: None - RESPIRATORY Hx Respiratory Disorders: No - CARDIOVASCULAR Hx Cardio Disorders: Yes Hx Chest Pain: Yes (double by-pass) Comment:: Aneurysm, serotonin fever post surgery 2015 - NEURO Hx Neuro Disorders: Yes Hx Dementia: Yes Hx TIA: Yes (1999) Comment:: parkinsons - GI Hx GI Disorders: No - Hx Genitourinary Disorders: Yes Hx Bladder Problem: Yes (Bladder mesh) Hx UTI: Yes - ENDOCRINE Hx Endocrine Disorders: Yes Hx Diabetes: Yes (type II) - MUSCULOSKELETAL Hx Musculoskeletal Disorders: Yes Hx Arthritis: Yes - PSYCH Hx Psych Problems: Yes Hx Depression: Yes - HEMATOLOGY/ONCOLOGY Hx Hematology/Oncology Disorders: No Family Medical History Hx Heart Disease: Mother Physical Exam - General General Appearance: Other (Patient opens eyes to voice/command, no other motor movement to command on examination.) Limitations: Altered mental status - Head Head exam: Atraumatic, Normocephalic, Normal inspection Head exam detail: negative: Abrasion, Contusion, Britt's sign, General tenderness, Hematoma, Laceration - Eye Eye exam: Normal appearance. negative: Conjunctival injection, Periorbital swelling, Periorbital tenderness, Scleral icterus - ENT Ear exam: negative: Auricular hematoma, Auricular trauma Nasal Exam: negative: Active bleeding, Discharge, Dried blood, Foreign body - Neck Neck exam: negative: Meningismus, Tenderness - Respiratory Respiratory exam: Normal lung sounds bilaterally. negative: Rales, Respiratory distress, Rhonchi, Stridor - Cardiovascular Cardiovascular Exam: Regular rate, Normal rhythm, Normal heart sounds Peripheral Pulses: 1+: Radial (R), Radial (L) - GI/Abdominal GI/Abdominal exam: Tenderness (Diffuse pain and guarding with palpation). negative: Rebound, Rigid - Rectal Rectal exam: Deferred - exam: Deferred - Extremities Extremities exam: negative: Calf tenderness, Pedal edema, Tenderness - Neurological Neurological exam: Other (Cannot assess due to mental status/lack of folliwng commands on evaluation.) - Psychiatric Psychiatric exam: Other - Skin Skin exam: Normal color. negative: Abrasion Type of lesion: negative: abrasion Course - Reevaluation(s) Reevaluation #1: 01/03/18 18:33 Accu check 190 on arrival. EKG: Sinus Bradycardia 50 LVH, normal axis Nonspecific ST-T wave changes c/w digoxin use Patient was seen and examined: 2nd IV established and 2L NS bolus ordered for initial hypotension. Stat CT head/Abdomen and Pelvis ordered to exclude acute cerebral hemorrhage given mental status changes/on Xarelto in reviewed of the patient's previous medical history. Stool on examination is also heme positive, type and screen ordered as well. Reevaluation #2: 01/03/18 19:00 Labs reviewed: WBC 15.9 Hgb 9.0/HCT 26.2 (12.6 6 days ago) Platelets 99 BUN/Creatinine 42/1.4 UA negative for infection. Patient is currently in CT for further evaluation. Reevaluation #3: 01/03/18 19:05 Digoxin level resulted at 3.6 c/w digoxin toxicity. Reevaluation #4: 01/03/18 19:13 Patient's family updated on results thus far and likely pending transfer. repeat BP 94/71 (slightly improved). Patient slightly more alert and reacting to family members at the bedside. Reevaluation #5: 01/03/18 19:39 CT Brain: No acute process Chronic changes CT Abdomen and pelvis: Right sided pleural effusion Atelectasis vs. infiltrate bilaterally GB wall thickening, cannot exclude cholecystitis Stool in herberth rectum Possible colitis transverse colon Small amount FF No appendicitis Patient and her family members were updated on all results, Invanz initiated in ED for possible intra-abdominal infection. Kaila 1-call contacted. 01/03/18 20:12 Patient is now sitting up, moving her upper extremities, talking with her daughter. BP slowly improving 99/42, pulse 99. 2nd IVF bolus has nearly completed. 01/03/18 20:52 Case was discussed with Dr. Rivera (Hospitalist), will accept transfer at this time. Medical Decision Making - Lab Data Result diagrams: 01/03/18 18:25 01/03/18 18:25 Critical Care Time Critical Care Time: Yes Total Critical Care Time: 60 Critical Care Time: Diagnosis and treatment for UGI bleed, Sepsis, exclusion of intracranial hemorrhage, IVF resusitation, early BS antibiotic coverage for possible colitis vs. cholecystitis vs. pneumonia. Frequent reassessments and updated of family members, arrangement for transfer to higher level of care. Disposition Disposition: Transfer Clinical Impression: UGI bleed, Hypoglycemia ARF (acute renal failure) Qualifiers: Acute renal failure type: unspecified Qualified Code(s): N17.9 - Acute kidney failure, unspecified Digoxin toxicity Qualifiers: Encounter type: initial encounter Injury intent: undetermined intent Qualified Code(s): T46.0X4A - Poisoning by cardiac-stimulant glycosides and drugs of similar action, undetermined, initial encounter Anemia Qualifiers: Anemia type: unspecified type Qualified Code(s): D64.9 - Anemia, unspecified Pneumonia Qualifiers: Pneumonia type: due to unspecified organism Laterality: bilateral Lung location : lower lobe of lung Qualified Code(s): J18.1 - Lobar pneumonia, unspecified organism Disposition: Acute Care Hospital Transfer Transfer To: [facility] Reason For Transfer: Sepsis, Digoxin toxicity, ARF, Surgery consultation Accepting Physician: Nicole Time Discussed w/Accepting Physician: 20:53 Condition: (3) Guarded Time of Disposition: 20:53 Quality - Quality Measures Quality Measures: N/A - Blood Pressure Screening Does Patient Have Any of the Following: No Blood Pressure Classification: Normal BP Reading Systolic Measurement: 102 Diastolic Measurement: 40 Screening for High Blood Pressure: < Normal BP, F/U Not Required > [G8703]
[2018-01-03 18:45] LABS: HEMATOCRIT 26.2 % (35.0-47.0); MEAN CELL VOLUME 90.3 fl (81-97); MEAN CORPUSCULAR HGB CONC 34.4 g/dl (32-36); MEAN PLATELET VOLUME 10.1 fl (7.4-10.4); PLATELET COUNT 99 K/uL (130-400); WHITE BLOOD COUNT W/O DIFF 15.9 K/uL (4.2-12.2)
[2018-01-03 18:55] LABS: BLOOD UREA NITROGEN 42 mg/dL (8-23); CREATININE 1.4 mg/dL (0.5-0.9); EST GLOMERULAR FILTRATION RATE 38 mL/min
[2018-01-03 18:56] LABS: PLATELET ESTIMATE DECREASED (NORMAL); TOTAL PROTEIN 4.7 g/dL (6.6-8.7)
[2018-01-03 18:56] LABS: URINE APPEARANCE CLEAR; URINE BILIRUBIN NEGATIVE (NEGATIVE); URINE BLOOD NEGATIVE (NEGATIVE); URINE COLOR YELLOW; URINE GLUCOSE (UA) NEGATIVE (NEGATIVE); URINE KETONE NEGATIVE (NEGATIVE); URINE LEUKOCYTE ESTERASE NEGATIVE (NEGATIVE); URINE NITRITE NEGATIVE (NEGATIVE); URINE PROTEIN NEGATIVE (NEGATIVE); URINE UROBILINOGEN 0.2 E.U./dL (0.20 - 1.00)
[2018-01-03 18:58] LABS: GLUCOSE,RANDOM 171 mg/dL (74-109)
[2018-01-03 19:00] LABS: ALB/GLOB RATIO 1.5 (1.1-1.8); ALBUMIN 2.8 g/dL (4.0-5.0); ALKALINE PHOSPHATASE 40 U/L (35-104); ALT/SGPT < 5 U/L (<33); AST/SGOT 11 U/L (10.0-35.0)
[2018-01-03 19:01] LABS: LIPASE 15 U/L (13-60)
[2018-01-03 19:29] LABS: ABO GROUP O; ANTIBODY SCREEN NEGATIVE (NEGATIVE); RH TYPE NEGATIVE
[2018-01-03] MEDS ORDERED: ERTAPENEM SODIUM 1 G in 0.9 % SODIUM CHLORIDE 100ML 100 ML IVPB ONE (20:03)
[2018-01-03] MEDS ORDERED: 0.9 % SODIUM CHLORIDE 1000ML 1,000 ML IV ONE ×2 (21:33→21:53)
[2018-01-03] MEDS ORDERED: DEXTROSE 50 % IVP 50 ML DISP.SYRIN IVP ONE (23:17)
[2018-01-03] MEDS ORDERED: DEXTROSE 5 %-0.45 % NACL 1,000 ML IV PRN (23:17)
--- NOTE | 2018-01-07 09:13 | CT SCAN REPORT ---
EXAM: EMERGENCY HEAD CT WITHOUT CONTRAST HISTORY: ABDOMINAL AND FLANK PAIN. UNRESPONSIVE TODAY. TECHNIQUE: Axial CT scan of the head was performed without IV contrast. Comparison: Head CT 12/28/17. Report of the prior CT not yet available within PACS. FINDINGS: No definite acute intracranial hemorrhage identified. No focal mass effect or midline shift apparent. Moderate generalized atrophy with chronic appearing deep white matter changes asa before, nonspecific, but likely representing some chronic small vessel deep white matter ischemic disease. No definite acute infarct or intracranial mass lesion seen. Basal ganglia calcification bilaterally as before. Some membrane thickening inferiorly in the right maxillary antrum similar to before. Evelina bullosa formation right middle turbinate. IMPRESSION: 1. NO DEFINITE ACUTE INTRACRANIAL HEMORRHAGE OR FOCAL MASS EFFECT EVIDENT. 2. GENERALIZED ATROPHY WITH CHRONIC APPEARING DEEP WHITE MATTER CHANGES BEFORE. 3. SOME MEMBRANE THICKENING IN THE RIGHT MAXILLARY ANTRUM BEFORE. 4. EVELINA BULLOSA FORMATION RIGHT MIDDLE TURBINATE. JOB NUMBER: [id number] MTDD
--- NOTE | 2018-01-07 09:34 | CT SCAN REPORT ---
EXAM: EMERGENCY CT OF THE ABDOMEN AND PELVIS WITH CONTRAST HISTORY: PATIENT UNRESPONSIVE. TECHNIQUE: Axial CT scan of the abdomen and pelvis was performed following IV contrast administration. No oral contrast utilized at the referring physician' s request. Please see the medical record for IV contrast specifics. Comparison: CT of the abdomen and pelvis 09/08/16. FINDINGS: The upper scans demonstrate postop sternotomy. Cardiomegaly. Small right pleural effusion and bibasilar atelectasis or infiltrate. Apparent cholelithiasis, also noted previously. Mild prominence of the gallbladder wall and acute cholecystitis could not absolutely be excluded. Clinical correlation is suggested. No definite hepatic, splenic, adrenal, pancreatic, or left renal mass identified. Small low attenuation mass far superiorly in the right kidney measuring 1.6 cm in size with a CT density of 15 consistent with a cyst. Velazquez catheter in the urinary bladder. Prominent stool in the rectum and correlation with fecal impaction is suggested. Evaluation of the bowel is considerably limited without oral contrast. Diverticulosis seen left side of the colon with no diverticulitis evident. The transverse colon has a somewhat thick walled appearance which is nonspecific and may just be related to incomplete distention, but a component of colitis cannot be excluded. The appendix appears negative. No free intraperitoneal air identified. Small periumbilical anterior abdominal wall hernia containing adipose tissue, but no bowel. Minimal if any free intraperitoneal fluid evident. Prominent degenerative change in the lumbar spine. IMPRESSION: 1. CARDIOMEGALY WITH SMALL RIGHT PLEURAL EFFUSION AND BIBASILAR ATELECTASIS OR INFILTRATE. POSTOP STERNOTOMY WELL. 2. CHOLELITHIASIS. ACUTE CHOLECYSTITIS CANNOT BE EXCLUDED AND CLINICAL CORRELATION IS SUGGESTED. 3. SMALL UPPER POLE RIGHT RENAL CYST. 4. PROMINENT STOOL IN THE RECTUM. MILD DIVERTICULOSIS IN THE LEFT SIDE OF THE COLON, BUT NO DIVERTICULITIS EVIDENT. SOMEWHAT THICK WALLED APPEARANCE OF THE TRANSVERSE COLON IS NONSPECIFIC, BUT COLITIS CANNOT BE EXCLUDED. 5. MULTILEVEL DEGENERATIVE CHANGE IN THE LUMBAR SPINE. 6. VELAZQUEZ CATHETER IN THE URINARY BLADDER. 7. PROBABLY A VERY SMALL AMOUNT OF FREE FLUID. NO FREE AIR EVIDENT. NO APPENDICITIS EVIDENT. JOB NUMBER: [id number] [facility]
== END 2018-01-03 23:54 | disposition short-term general hospital (02) ==
LOC: ER 18:20
DX: T46.0X1A Poisoning by cardiac-stimulant glycosides and drugs of similar action, accidental (unintentional), initial encounter (principal); K92.2 Gastrointestinal hemorrhage, unspecified; I95.1 Orthostatic hypotension; J18.1 Lobar pneumonia, unspecified organism; D64.9 Anemia, unspecified; N17.9 Acute kidney failure, unspecified; E11.649 Type 2 diabetes mellitus with hypoglycemia without coma; R10.9 Unspecified abdominal pain; I10 Essential (primary) hypertension; G20 Parkinson's disease; F02.80 Dementia in other diseases classified elsewhere, unspecified severity, without behavioral disturbance, psychotic disturbance, mood disturbance, and anxiety; Z86.73 Personal history of transient ischemic attack (TIA), and cerebral infarction without residual deficits; Z79.01 Long term (current) use of anticoagulants; Z79.4 Long term (current) use of insulin
CPT/HCPCS: 51702; 99291 ×2; 96365; 96366; 96375; 96361; 83605; 83690; 80053; 81003; 84484; 80162; 85027; 86900; 86901; 86850; 70450; 74177; 93005; 93010; Q9967; J1335; J7030

== ENCOUNTER 2018-01-17 18:43 | Emergency (ER) | payer MEDICARE, OTHER ==
[2018-01-17] MEDS ORDERED: PROMETHAZINE HCL 6.25 MG in 0.9 % SODIUM CHLORIDE 100ML 100 ML IVPB ONE (19:18)
[2018-01-17 19:26] LABS: HEMATOCRIT 32.5 % (35.0-47.0); HEMOGLOBIN 10.1 gm/dl (11.6-16.0); MEAN CELL VOLUME 92.3 fl (81-97); MEAN CORPUSCULAR HGB CONC 31.1 g/dl (32-36); MEAN PLATELET VOLUME 9.3 fl (7.4-10.4); PLATELET COUNT 319 K/uL (130-400); RED BLOOD COUNT 3.52 M/uL (3.80-5.40); RED CELL DISTRIBUTION WIDTH 14.1 % (11.5-14.5); WHITE BLOOD COUNT W/O DIFF 6.7 K/uL (4.2-12.2)
[2018-01-17 19:27] LABS: MEAN CORPUSCULAR HEMOGLOBIN 28.6 pg (27-33)
[2018-01-17] MEDS ORDERED: 0.9 % SODIUM CHLORIDE 1,000 ML BAG IV ONE (19:27)
[2018-01-17 19:36] LABS: BLOOD UREA NITROGEN 6 mg/dL (8-23); CREATININE 0.5 mg/dL (0.5-0.9); EST GLOMERULAR FILTRATION RATE > 60 mL/min; TOTAL PROTEIN 5.8 g/dL (6.6-8.7)
[2018-01-17 19:38] LABS: GLUCOSE,RANDOM 203 mg/dL (74-109)
--- NOTE | 2018-01-17 19:39 | Emergency Department Record ---
History of Present Illness - General Chief complaint: Nausea, Vomiting, Diarrhea Stated complaint: VOMITING AND DIARREA Time Seen by Provider: 01/17/18 19:13 Source: Patient, Family Mode of Arrival: Wheelchair Limitations: No limitations - History of Present Illness Initial comments: pt was discharged from [facility] 4 days ago for pneumonia and colitis. since then she has been vomiting and had diarrhea. she is not able to keep her meds down. she denies any pain Onset/Timin -: Hour(s) Description of Vomiting: Bilious Associated Abdominal Pain: No Consistency: Constant Worsens with: Eating, Medication Context: Recent anitbiotic use Associated Symptoms: Nausea/vomiting - Related Data Previous Rx's Medication Instructions Recorded Sulfamethoxazole/Trimethoprim 1 tab PO BID #14 tab 12/28/17 [Bactrim Ds] Allergies Allergy/AdvReac Type Severity Reaction Status Date / Time lisinopril Allergy Mild cough Unverified 01/03/18 19:55 codeine Allergy Unknown PT UNSURE Unverified 01/03/18 19:55 OF REACTION meperidine HCl [From Demerol] Allergy Unknown PT UNSURE Unverified 01/03/18 19: 55 OF REACTION Penicillins Allergy Unknown RASH Unverified 01/03/18 19:55 Travel Screening - Travel/Exposure Within Last 30 Days Have you traveled within the last 30 days?: No - Travel Symptoms Symptom Screening: Vomiting Review of Systems Reviewed: No additional complaints except as noted below Constitutional: Reports: As per HPI. Denies: Chills, Fever, Malaise, Night sweats, Weakness, Weight change Eyes: Reports: As per HPI. Denies: Eye discharge, Eye pain, Photophobia, Vision change ENT: Reports: As per HPI. Denies: Congestion, Dental pain, Ear pain, Epistaxis , Hearing loss, Throat pain Respiratory: Reports: As per HPI. Denies: Cough, Dyspnea, Hemoptysis, Stridor, Wheezes Cardiovascular: Reports: As per HPI. Denies: Arrhythmia, Chest pain, Dyspnea on exertion, Edema, Murmurs, Orthopnea, Palpitations, Paroxysmal nocturnal dyspnea, Rheumatic Fever, Syncope Endocrine: Reports: As per HPI. Denies: Fatigue, Heat or cold intolerance, Polydipsia, Polyuria Gastrointestinal: Reports: As per HPI. Denies: Abdominal pain, Constipation, Diarrhea, Hematemesis, Hematochezia, Melena, Nausea, Vomiting Genitourinary: Reports: As per HPI. Denies: Abnormal menses, Discharge, Dyspareunia, Dysuria, Frequency, Hematuria, Incontinence, Retention, Urgency Musculoskeletal: Reports: As per HPI. Denies: Arthralgia, Back pain, Gout, Joint swelling, Myalgia, Neck pain Skin: Reports: As per HPI. Denies: Bruising, Change in color, Change in hair/ nails, Lesions, Pruritus, Rash Neurological: Reports: As per HPI. Denies: Abnormal gait, Confusion, Headache, Numbness, Paresthesias, Seizure, Tingling, Tremors, Vertigo, Weakness Psychiatric: Reports: As per HPI. Denies: Anxiety, Auditory hallucinations, Depression, Homicidal thoughts, Suicidal thoughts, Visual hallucinations Hematological/Lymphatic: Reports: As per HPI. Denies: Anemia, Blood Clots, Easy bleeding, Easy bruising, Swollen glands Past Medical History - SOCIAL HISTORY Smoking Status: Never smoker Alcohol Use: None Drug Use: None - RESPIRATORY Hx Respiratory Disorders: No - CARDIOVASCULAR Hx Cardio Disorders: Yes Hx Chest Pain: Yes (double by-pass) Comment:: Aneurysm, serotonin fever post surgery 2015 - NEURO Hx Neuro Disorders: Yes Hx Dementia: Yes Hx TIA: Yes (1999) Comment:: parkinsons - GI Hx GI Disorders: No - Hx Genitourinary Disorders: Yes Hx Bladder Problem: Yes (Bladder mesh) Hx UTI: Yes - ENDOCRINE Hx Endocrine Disorders: Yes Hx Diabetes: Yes (type II) - MUSCULOSKELETAL Hx Musculoskeletal Disorders: Yes Hx Arthritis: Yes - PSYCH Hx Psych Problems: Yes Hx Depression: Yes - HEMATOLOGY/ONCOLOGY Hx Hematology/Oncology Disorders: No Family Medical History Any Significant Family History?: Yes Family Hx Comment (NOT TO BE USED IN PLACE OF ITEMS BELOW): know every little about family medical history Hx Heart Disease: Mother Physical Exam - General General Appearance: Alert, Oriented x3, Cooperative, Mild distress - Head Head exam: Normal inspection - Eye Eye exam: Normal appearance, PERRL, EOMI Pupils: Normal accommodation - ENT ENT exam: Normal exam, Mucous membranes moist, Normal external ear exam, Normal orophraynx, TM's normal bilaterally Ear exam: Normal external inspection. negative: External canal tenderness Nasal Exam: Normal inspection. negative: Discharge, Sinus tenderness Mouth exam: Normal external inspection, Tongue normal Teeth exam: Normal inspection. negative: Dental caries Throat exam: Normal inspection. negative: Tonsillar erythema, Tonsillar exudate - Neck Neck exam: Normal inspection, Full ROM. negative: Tenderness - Respiratory Respiratory exam: Normal lung sounds bilaterally. negative: Respiratory distress - Cardiovascular Cardiovascular Exam: Regular rate, Normal rhythm, Normal heart sounds - GI/Abdominal GI/Abdominal exam: Soft, Normal bowel sounds. negative: Tenderness - Rectal Rectal exam: Deferred - exam: Deferred - Extremities Extremities exam: Normal inspection, Full ROM, Normal capillary refill. negative: Tenderness - Back Back exam: Reports: Normal inspection, Full ROM. Denies: Muscle spasm, Rash noted, Tenderness - Neurological Neurological exam: Alert, CN II-XII intact, Normal gait, Oriented X3 - Psychiatric Psychiatric exam: Normal affect, Normal mood - Skin Skin exam: Dry, Intact, Normal color, Warm Course Vital Signs 01/17/18 19:04 Temperature 97.4 F L Pulse Rate [ 73 Pulse Ox Probe] Respiratory 17 Rate Blood Pressure 146/66 [Left Arm] Pulse Ox 97 - Reevaluation(s) Reevaluation #1: 01/17/18 21:38 pt feels better. no further vomiting Medical Decision Making - Lab Data Result diagrams: 01/17/18 19:15 01/17/18 19:15 Lab Results 01/17/18 Range/Units 19:15 WBC 6.7 (4.2-12.2) K/uL RBC 3.52 L (3.80-5.40) M/uL Hgb 10.1 L (11.6-16.0) gm/dl Hct 32.5 L (35.0-47.0) % MCV 92.3 (81-97) fl MCH 28.6 (27-33) pg MCHC 31.1 L (32-36) g/dl RDW 14.1 (11.5-14.5) % Plt Count 319 (130-400) K/uL MPV 9.3 (7.4-10.4) fl Eosinophils % Not Reportable Basophils % Not Reportable Disposition Disposition: Discharge Clinical Impression: Vomiting Qualifiers: Vomiting type: unspecified Vomiting Intractability: non-intractable Nausea presence: with nausea Qualified Code(s): R11.2 - Nausea with vomiting, unspecified Disposition: Home, Self-Care Condition: (1) Good Instructions: Acute Nausea and Vomiting (ED) Additional Instructions: follow up with family doctor. return sooner if worse. push fluids Forms: Patient Portal Access Quality - Quality Measures Quality Measures: N/A - Blood Pressure Screening Does Patient Have Any of the Following: Active Dx of HTN Blood Pressure Classification: Hypertensive Reading Systolic Measurement: 146 Diastolic Measurement: 66 Screening for High Blood Pressure: Patient Exclusion, Hx of HTN [G9744]
[2018-01-17 19:41] LABS: ALB/GLOB RATIO 1.2 (1.1-1.8); ALBUMIN 3.2 g/dL (4.0-5.0); ALKALINE PHOSPHATASE 55 U/L (35-104); ALT/SGPT < 5 U/L (<33); AST/SGOT 18 U/L (10.0-35.0); LIPASE 30 U/L (13-60)
[2018-01-17 19:44] LABS: ANISOCYTOSIS 1+; PLATELET ESTIMATE NORMAL (NORMAL)
[2018-01-17 20:08] LABS: URINE APPEARANCE SL CLOUDY; URINE BILIRUBIN NEGATIVE (NEGATIVE); URINE BLOOD NEGATIVE (NEGATIVE); URINE COLOR YELLOW; URINE GLUCOSE (UA) NEGATIVE (NEGATIVE); URINE KETONE NEGATIVE (NEGATIVE); URINE LEUKOCYTE ESTERASE NEGATIVE (NEGATIVE); URINE NITRITE NEGATIVE (NEGATIVE); URINE PROTEIN NEGATIVE (NEGATIVE); URINE UROBILINOGEN 0.2 E.U./dL (0.20 - 1.00)
[2018-01-17] MEDS ORDERED: CIPROFLOXACIN LACTATE/D5W 400 MG/200 ML BAG IVPB ONE (20:43)
== END 2018-01-17 22:10 | disposition home or self-care (01) ==
LOC: ER 18:43
DX: R11.2 Nausea with vomiting, unspecified (principal); R19.7 Diarrhea, unspecified; I10 Essential (primary) hypertension
CPT/HCPCS: 99284 ×2; 96365; 96361; 83690; 80053; 89055; 81003; 82272; 85027; J0744; J2550; J7030

== ENCOUNTER 2018-02-03 10:24 | Emergency (ER) | payer MEDICARE, OTHER ==
[2018-02-03 11:18] LABS: HEMATOCRIT 29.7 % (35.0-47.0); HEMOGLOBIN 9.3 gm/dl (11.6-16.0); MEAN CELL VOLUME 89.7 fl (81-97); MEAN CORPUSCULAR HGB CONC 31.3 g/dl (32-36); MEAN PLATELET VOLUME 9.4 fl (7.4-10.4); PLATELET COUNT 207 K/uL (130-400); RED BLOOD COUNT 3.31 M/uL (3.80-5.40); RED CELL DISTRIBUTION WIDTH 13.1 % (11.5-14.5); WHITE BLOOD COUNT W/O DIFF 8.9 K/uL (4.2-12.2)
--- NOTE | 2018-02-03 11:21 | Emergency Department Record ---
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 Since she has been "ok" but had a dark BM noted by visiting RN. Sent to ED for evaluation. Has been given Pepto Bismol since stomach upset. No blood in vomit, only food per . No fever, no change in behavior. Pt requires total care at home, stands only for transfers. No hx ulcer disease. MD complaint: Melena Onset/Timin -: Days(s) Severity scale (1-10): 6 Quality: Cramping - Related Data Allergies Allergy/AdvReac Type Severity Reaction Status Date / Time lisinopril Allergy Mild cough Verified 02/03/18 10:35 codeine Allergy Unknown PT UNSURE Verified 02/03/18 10:35 OF REACTION meperidine HCl [From Demerol] Allergy Unknown PT UNSURE Verified 02/03/18 10:35 OF REACTION Penicillins Allergy Unknown RASH Verified 02/03/18 10:35 Travel Screening - Travel/Exposure Within Last 30 Days Have you traveled within the last 30 days?: No - Travel/Exposure Within Last Year Have you traveled outside the [place] in the last year?: No - Additonal Travel Details Have you been exposed to anyone with a communicable illness?: No - Travel Symptoms Symptom Screening: None Review of Systems Constitutional: Denies: Chills, Fever Eyes: Denies: Photophobia, Vision change ENT: Denies: Congestion Respiratory: Denies: Cough, Dyspnea Cardiovascular: Denies: Chest pain Endocrine: Denies: Fatigue Gastrointestinal: Reports: As per HPI, Melena, Vomiting. Denies: Abdominal pain , Constipation Musculoskeletal: Denies: Back pain Skin: Denies: Bruising Neurological: Denies: Confusion, Headache Psychiatric: Denies: Anxiety Past Medical History - SOCIAL HISTORY Smoking Status: Never smoker Alcohol Use: None Drug Use: None - RESPIRATORY Hx Respiratory Disorders: No - CARDIOVASCULAR Hx Cardio Disorders: Yes Hx Chest Pain: Yes (double by-pass) Comment:: Aneurysm, serotonin fever post surgery 2015 - NEURO Hx Neuro Disorders: Yes Hx Dementia: Yes Hx TIA: Yes (1999) Comment:: parkinsons - GI Hx GI Disorders: No - Hx Genitourinary Disorders: Yes Hx Bladder Problem: Yes (Bladder mesh) Hx UTI: Yes - ENDOCRINE Hx Endocrine Disorders: Yes Hx Diabetes: Yes (type II) - MUSCULOSKELETAL Hx Musculoskeletal Disorders: Yes Hx Arthritis: Yes - PSYCH Hx Psych Problems: Yes Hx Depression: Yes - HEMATOLOGY/ONCOLOGY Hx Hematology/Oncology Disorders: No Family Medical History Any Significant Family History?: Yes Family Hx Comment (NOT TO BE USED IN PLACE OF ITEMS BELOW): know every little about family medical history Hx Heart Disease: Mother Physical Exam - General General Appearance: Alert, Cooperative, No acute distress ( provided history. Pt alert and verbal ) Limitations: No limitations - Head Head exam: Atraumatic - Eye Eye exam: Normal appearance - ENT Ear exam: Normal external inspection Nasal Exam: Normal inspection Mouth exam: Normal external inspection - Neck Neck exam: Normal inspection. negative: Lymphadenopathy, Tenderness - Respiratory Respiratory exam: Normal lung sounds bilaterally. negative: Respiratory distress, Wheezes - Cardiovascular Cardiovascular Exam: Regular rate, Normal rhythm, Systolic murmur Peripheral Pulses: 2+: Radial (R), Radial (L) - GI/Abdominal GI/Abdominal exam: Soft, Normal bowel sounds, Distended. negative: Guarding, Tenderness - Rectal Rectal exam: Black stool, Heme (+) stool (faint positive stool fro occult blood) . negative: Bloody stool - Extremities Extremities exam: Normal inspection. negative: Calf tenderness, Joint swelling , Tenderness - Back Back exam: Reports: Normal inspection. Denies: Paraspinal tenderness - Neurological Neurological exam: Alert (verbal, moves ext x 4 ) - Psychiatric Psychiatric exam: Normal affect - Skin Skin exam: Normal color. negative: Rash Course Vital Signs 02/03/18 10:26 Temperature 98.5 F Pulse Rate 65 Respiratory 18 Rate Blood Pressure 134/52 Pulse Ox 99 - Reevaluation(s) Reevaluation #1: 02/03/18 11:30 Pt with UTI and prob pyelonephritis right. IV Ofirmev and Rocephin given. US pending. Pt states, "Isn't that just IV Tylenol?" Resting quietly Reevaluation #2: 02/03/18 11:53 Pt with Hb 9 unchanged since prior one month ago. Ate toast and coffee and comfortable with home and out pt follow up. Has scheduled appointment with PMD> Pt to resume taking her iron suppliments. Medical Decision Making - Lab Data Result diagrams: 02/03/18 10:55 02/03/18 10:55 Disposition Disposition: Discharge Clinical Impression: Melena, Debility, Anemia Disposition: Home, Self-Care Instructions: Iron Deficiency Anemia (ED) Additional Instructions: Follow with Dr. Anderson as planned. return to the ED as needed. Forms: Patient Portal Access Quality - Quality Measures Quality Measures: N/A - Blood Pressure Screening Does Patient Have Any of the Following: No Blood Pressure Classification: Pre-Hypertensive BP Reading Systolic Measurement: 134 Diastolic Measurement: 52 Screening for High Blood Pressure: < Pre-Hypertensive BP, F/U Documented > [ G8950] Pre-Hypertensive Follow-up Interventions: Follow-up with rescreen every year.
[2018-02-03 11:31] LABS: PLATELET ESTIMATE NORMAL (NORMAL)
[2018-02-03 11:32] LABS: BLOOD UREA NITROGEN 12 mg/dL (8-23); CREATININE 0.8 mg/dL (0.5-0.9); EST GLOMERULAR FILTRATION RATE > 60 mL/min
[2018-02-03 11:35] LABS: GLUCOSE,RANDOM 94 mg/dL (74-109)
[2018-02-03] MEDS ORDERED: SODIUM CHLORIDE 0.9% 500 ML IV ONE (11:49)
[2018-02-03] MEDS ORDERED: KETOROLAC 30 MG/ML VIAL IVP ONE (11:49)
[2018-02-03] MEDS ORDERED: ACETAMINOPHEN 325 MG TAB PO ONE (12:29)
== END 2018-02-03 12:33 | disposition home or self-care (01) ==
LOC: ER 10:24
DX: K92.1 Melena (principal); N39.0 Urinary tract infection, site not specified; R53.1 Weakness; D64.9 Anemia, unspecified; G20 Parkinson's disease; F02.80 Dementia in other diseases classified elsewhere, unspecified severity, without behavioral disturbance, psychotic disturbance, mood disturbance, and anxiety; E11.9 Type 2 diabetes mellitus without complications; Z79.4 Long term (current) use of insulin
CPT/HCPCS: 80048; 85027; 99283

== ENCOUNTER 2018-02-24 14:15 | Emergency (ER) | payer MEDICARE, OTHER ==
[2018-02-24] MEDS ORDERED: 0.9 % SODIUM CHLORIDE 1,000 ML BAG IV ONE (14:46)
--- NOTE | 2018-02-24 14:52 | Emergency Department Record ---
History of Present Illness - General Chief Complaint: Confusion Stated Complaint: INCREASED CONFUSION Time Seen by Provider: 02/24/18 14:37 Source: Patient, Family Mode of Arrival: Wheelchair Limitations: No limitations - History of Present Illness Initial Comments: The patient was sent to the ER from the due to being more confused and not acting normally per family. She has a hx of a large CVA and now is nonambulatory and difficult to communicate with at times. She is not ambulatory and only stands for transfers. She does have a hx of frequent UTI's with presentations similar to this. The patient was last treated for a UTI 3 weeks ago. Per her who is her caregiver she did vomit last evening but has had no vomiting or diarrhea today. The patient was admitted to [facility] for a week and was discharged 8 days ago. During that visit she did have an abdominal CT that demonstrated Colitis and did have an ERCP with a gallstone removal from the CBD. She did also have a significant GI bleed and was transfused and did have her Xarelto discontinued. MD Complaint: Altered mental status, Weakness Onset/Timin -: Days(s) Severity: Moderate Context: History of similar presentation Associated Symptoms: Loss of appetite, Weakness - Dyer Coma Scale Eye Response: (2) Open to pain Motor Response: (4) Withdraws to pain Verbal Response: (2) Incomprehsible sounds Dyer Total: 8 - Related Data Allergies Allergy/AdvReac Type Severity Reaction Status Date / Time lisinopril Allergy Mild cough Verified 02/24/18 14:21 codeine Allergy Unknown PT UNSURE Verified 02/24/18 14:21 OF REACTION meperidine HCl [From Demerol] Allergy Unknown PT UNSURE Verified 02/24/18 14:21 OF REACTION Penicillins Allergy Unknown RASH Verified 02/24/18 14:21 Travel Screening - Travel/Exposure Within Last 30 Days Have you traveled within the last 30 days?: No Review of Systems Constitutional: Reports: Malaise. Denies: Chills, Fever Eyes: Denies: Eye discharge ENT: Denies: Congestion Respiratory: Denies: Cough, Dyspnea Cardiovascular: Denies: Chest pain Endocrine: Reports: Fatigue Gastrointestinal: Reports: Nausea, Vomiting. Denies: Diarrhea Genitourinary: Denies: Dysuria Musculoskeletal: Denies: Back pain Skin: Denies: Bruising Past Medical History - SOCIAL HISTORY Smoking Status: Never smoker Alcohol Use: None Drug Use: None - RESPIRATORY Hx Respiratory Disorders: No - CARDIOVASCULAR Hx Cardio Disorders: Yes Hx Chest Pain: Yes (double by-pass) Comment:: Aneurysm, serotonin fever post surgery 2014 - NEURO Hx Neuro Disorders: Yes Hx Dementia: Yes Hx TIA: Yes (1999) Comment:: parkinsons - GI Hx GI Disorders: No - Hx Genitourinary Disorders: Yes Hx Bladder Problem: Yes (Bladder mesh) Hx UTI: Yes - ENDOCRINE Hx Endocrine Disorders: Yes Hx Diabetes: Yes (type II) - MUSCULOSKELETAL Hx Musculoskeletal Disorders: Yes Hx Arthritis: Yes - PSYCH Hx Psych Problems: Yes Hx Depression: Yes - HEMATOLOGY/ONCOLOGY Hx Hematology/Oncology Disorders: No Family Medical History Any Significant Family History?: Yes Family Hx Comment (NOT TO BE USED IN PLACE OF ITEMS BELOW): know every little about family medical history Hx Heart Disease: Mother Physical Exam - General General Appearance: Alert, Cooperative, No acute distress - Head Head exam: Atraumatic, Normocephalic - Eye Eye exam: Normal appearance. negative: Periorbital swelling - Neck Neck exam: Normal inspection, Full ROM. negative: Tenderness - Respiratory Respiratory exam: Decreased breath sounds (Decreased breath sounds R lower lobe. ). negative: Normal lung sounds bilaterally, Respiratory distress - Cardiovascular Cardiovascular Exam: Regular rate, Normal rhythm, Systolic murmur (2/6 EM LLSB ( chronic)). negative: Normal heart sounds, Gallop, Irregular rhythm - GI/Abdominal GI/Abdominal exam: Soft, Normal bowel sounds. negative: Distended, Guarding, Rebound, Rigid, Tenderness (There is no tenderness to palpation.) - Extremities Extremities exam: Normal inspection - Neurological Neurological exam: Abnormal gait (Chronic.), Altered (The patient is only mumbling incomprehensibly and moving her 4 ext equally.). negative: Alert, Motor sensory deficit (The patient is not cooperative enought to test her extremities.), Normal gait, Oriented X3 (The patient is oriented to name, Bday, and Hospital but not date and year. Her mental status is normal per family.) - Psychiatric Psychiatric exam: Agitated Course Vital Signs 02/24/18 14:24 Temperature 98.4 F Pulse Rate 84 Respiratory 20 Rate Blood Pressure 138/64 Pulse Ox 95 - Reevaluation(s) Reevaluation #1: The patient is now conversing normally and ONLY is complaining of L arm pain at the IV site. She denies any S[place], CP, SOB, or AP. On exam her abdomen is very soft and nontender. I did explain to the patient;s that her lab work and UA were all WNL's for her. I did offer to perform a head, chest and Abd CT due to the fact I have not found the cause of her mild agitation but her (DENNIS) refused that. I also did offer to admit the patient to the hospital but he also refused that. Her would like to take her home and F /U as an outpatient. I did explain the need to return if not better or for any worsening symptoms. 02/24/18 15:53 Medical Decision Making - Data Complexity MDM Data: Labs Ordered and/or Reviewed - Lab Data Result diagrams: 02/24/18 14:54 02/24/18 14:54 Disposition Disposition: Discharge Clinical Impression: Debility Disposition: Home, Self-Care Condition: (2) Stable Instructions: Dementia (ED) Additional Instructions: The patient is to continue her present medicines and is to see her PCP later this week. She is to return to the ER for any worsening symptoms or pain. Forms: Patient Portal Access Time of Disposition: 15:57 Quality - Quality Measures Quality Measures: N/A - Blood Pressure Screening View Details: Yes Does Patient Have Any of the Following: No Blood Pressure Classification: Pre-Hypertensive BP Reading Systolic Measurement: 138 Diastolic Measurement: 64 Screening for High Blood Pressure: < Pre-Hypertensive BP, F/U Documented > [ G8950] Pre-Hypertensive Follow-up Interventions: Referral to alternative/primary care provider.
[2018-02-24 15:05] LABS: URINE APPEARANCE CLEAR; URINE BILIRUBIN NEGATIVE (NEGATIVE); URINE BLOOD NEGATIVE (NEGATIVE); URINE COLOR YELLOW; URINE GLUCOSE (UA) NEGATIVE (NEGATIVE); URINE KETONE NEGATIVE (NEGATIVE); URINE LEUKOCYTE ESTERASE NEGATIVE (NEGATIVE); URINE NITRITE NEGATIVE (NEGATIVE); URINE PROTEIN NEGATIVE (NEGATIVE); URINE UROBILINOGEN 0.2 E.U./dL (0.20 - 1.00)
[2018-02-24 15:15] LABS: BLOOD UREA NITROGEN 10 mg/dL (8-23); CREATININE 0.6 mg/dL (0.5-0.9); EST GLOMERULAR FILTRATION RATE > 60 mL/min; TOTAL PROTEIN 5.7 g/dL (6.6-8.7)
[2018-02-24 15:17] LABS: GLUCOSE,RANDOM 135 mg/dL (74-109)
[2018-02-24 15:20] LABS: ALB/GLOB RATIO 1.3 (1.1-1.8); ALBUMIN 3.2 g/dL (4.0-5.0); ALKALINE PHOSPHATASE 41 U/L (35-104); ALT/SGPT 5 U/L (<33); AST/SGOT 16 U/L (10.0-35.0); C-REACTIVE PROTEIN 0.07 mg/dL (<0.5)
[2018-02-24 15:21] LABS: HEMATOCRIT 28.6 % (35.0-47.0); HEMOGLOBIN 8.9 gm/dl (11.6-16.0); MEAN CORPUSCULAR HEMOGLOBIN 27.3 pg (27-33); MEAN CORPUSCULAR HGB CONC 31.1 g/dl (32-36); MEAN PLATELET VOLUME 9.4 fl (7.4-10.4); PLATELET COUNT 249 K/uL (130-400); RED BLOOD COUNT 3.25 M/uL (3.80-5.40); RED CELL DISTRIBUTION WIDTH 14.9 % (11.5-14.5); WHITE BLOOD COUNT W/O DIFF 6.9 K/uL (4.2-12.2)
== END 2018-02-24 16:20 | disposition home or self-care (01) ==
LOC: ER 14:15
DX: R53.81 Other malaise (principal); R41.82 Altered mental status, unspecified; G20 Parkinson's disease; F02.80 Dementia in other diseases classified elsewhere, unspecified severity, without behavioral disturbance, psychotic disturbance, mood disturbance, and anxiety; E11.9 Type 2 diabetes mellitus without complications; Z79.4 Long term (current) use of insulin; Z86.73 Personal history of transient ischemic attack (TIA), and cerebral infarction without residual deficits
CPT/HCPCS: 80053; 81003; 85027; 86140; 99283

== ENCOUNTER 2018-03-10 15:09 | Emergency (ER) | payer MEDICARE, OTHER ==
[2018-03-10] MEDS ORDERED: 0.9 % SODIUM CHLORIDE 1,000 ML BAG IV ONE (15:46)
--- NOTE | 2018-03-10 15:47 | Emergency Department Record ---
History of Present Illness - General Chief complaint: Female Urogenital Problem Stated complaint: UTI Time Seen by Provider: 03/10/18 15:33 Source: Family Mode of Arrival: Wheelchair Limitations: Altered mental status - History of Present Illness Initial comments: pt has had a loss of appetite and n/v and appears to not feel well. she was awake all night. her states she acts like this when she gets a uti. she is unable to tell me what exactly bothers her MD Complaint: Other Onset/Timin -: Week(s) Severity: Mild Consistency: Constant Improves with: None Worsens with: None Patient : No Associated Symptoms: Loss of appetite, Nausea/vomiting, Weakness - Related Data Previous Rx's Medication Instructions Recorded Cephalexin [Keflex] 500 mg PO BID #10 cap 03/10/18 Allergies Allergy/AdvReac Type Severity Reaction Status Date / Time lisinopril Allergy Mild cough Verified 02/24/18 14:21 codeine Allergy Unknown PT UNSURE Verified 02/24/18 14:21 OF REACTION meperidine HCl [From Demerol] Allergy Unknown PT UNSURE Verified 02/24/18 14:21 OF REACTION Penicillins Allergy Unknown RASH Verified 02/24/18 14:21 Travel Screening - Travel/Exposure Within Last 30 Days Have you traveled within the last 30 days?: No Review of Systems Reviewed: No additional complaints except as noted below Constitutional: Reports: As per HPI, Weakness. Denies: Chills, Fever, Malaise, Night sweats, Weight change Eyes: Reports: As per HPI. Denies: Eye discharge, Eye pain, Photophobia, Vision change ENT: Reports: As per HPI. Denies: Congestion, Dental pain, Ear pain, Epistaxis , Hearing loss, Throat pain Respiratory: Reports: As per HPI. Denies: Cough, Dyspnea, Hemoptysis, Stridor, Wheezes Cardiovascular: Reports: As per HPI. Denies: Arrhythmia, Chest pain, Dyspnea on exertion, Edema, Murmurs, Orthopnea, Palpitations, Paroxysmal nocturnal dyspnea, Rheumatic Fever, Syncope Endocrine: Reports: As per HPI. Denies: Fatigue, Heat or cold intolerance, Polydipsia, Polyuria Gastrointestinal: Reports: As per HPI, Nausea, Vomiting. Denies: Abdominal pain , Constipation, Diarrhea, Hematemesis, Hematochezia, Melena Genitourinary: Reports: As per HPI. Denies: Abnormal menses, Discharge, Dyspareunia, Dysuria, Frequency, Hematuria, Incontinence, Retention, Urgency Musculoskeletal: Reports: As per HPI. Denies: Arthralgia, Back pain, Gout, Joint swelling, Myalgia, Neck pain Skin: Reports: As per HPI. Denies: Bruising, Change in color, Change in hair/ nails, Lesions, Pruritus, Rash Neurological: Reports: As per HPI. Denies: Abnormal gait, Confusion, Headache, Numbness, Paresthesias, Seizure, Tingling, Tremors, Vertigo, Weakness Psychiatric: Reports: As per HPI. Denies: Anxiety, Auditory hallucinations, Depression, Homicidal thoughts, Suicidal thoughts, Visual hallucinations Hematological/Lymphatic: Reports: As per HPI. Denies: Anemia, Blood Clots, Easy bleeding, Easy bruising, Swollen glands Past Medical History - SOCIAL HISTORY Smoking Status: Never smoker - RESPIRATORY Hx Respiratory Disorders: No - CARDIOVASCULAR Hx Cardio Disorders: Yes Hx Chest Pain: Yes (double by-pass) Comment:: Aneurysm, serotonin fever post surgery 2014 - [facility]URO Hx Neuro Disorders: Yes Hx Dementia: Yes Hx TIA: Yes (1999) Comment:: parkinsons - GI Hx GI Disorders: No - Hx Genitourinary Disorders: Yes Hx Bladder Problem: Yes (Bladder mesh) Hx UTI: Yes - ENDOCRINE Hx Endocrine Disorders: Yes Hx Diabetes: Yes (type II) - MUSCULOSKELETAL Hx Musculoskeletal Disorders: Yes Hx Arthritis: Yes - PSYCH Hx Psych Problems: Yes Hx Depression: Yes - HEMATOLOGY/ONCOLOGY Hx Hematology/Oncology Disorders: No Family Medical History Any Significant Family History?: Yes Family Hx Comment (NOT TO BE USED IN PLACE OF ITEMS BELOW): know every little about family medical history Hx Heart Disease: Mother Physical Exam - General General Appearance: Alert, Cooperative, Mild distress - Head Head exam: Normal inspection - Eye Eye exam: Normal appearance, PERRL, EOMI Pupils: Normal accommodation - ENT ENT exam: Normal exam, Mucous membranes moist, Normal external ear exam, Normal orophraynx Ear exam: Normal external inspection. negative: External canal tenderness Nasal Exam: Normal inspection. negative: Discharge, Sinus tenderness Mouth exam: Normal external inspection, Tongue normal Teeth exam: Normal inspection. negative: Dental caries Throat exam: Normal inspection. negative: Tonsillar erythema, Tonsillar exudate - Neck Neck exam: Normal inspection, Full ROM. negative: Tenderness - Respiratory Respiratory exam: Normal lung sounds bilaterally. negative: Respiratory distress - Cardiovascular Cardiovascular Exam: Regular rate, Normal rhythm, Normal heart sounds - GI/Abdominal GI/Abdominal exam: Soft, Normal bowel sounds. negative: Tenderness - Rectal Rectal exam: Deferred - exam: Deferred - Extremities Extremities exam: Normal inspection, Full ROM, Normal capillary refill. negative: Tenderness - Back Back exam: Reports: Normal inspection, Full ROM. Denies: Muscle spasm, Rash noted, Tenderness - Neurological Neurological exam: Alert, CN II-XII intact, Normal gait - Psychiatric Psychiatric exam: Normal affect, Normal mood - Skin Skin exam: Dry, Intact, Normal color, Warm Course Vital Signs 03/10/18 15:21 Temperature 97.3 F L Pulse Rate [ 83 Pulse Ox Probe] Respiratory 20 Rate Blood Pressure 144/59 [Left Arm] Pulse Ox 98 - Reevaluation(s) Reevaluation #1: 03/10/18 18:22 pt feels better. currently drinking water. Medical Decision Making - Lab Data Result diagrams: 03/10/18 15:45 03/10/18 15:45 Disposition Disposition: Discharge Clinical Impression: Dehydration UTI (urinary tract infection) Qualifiers: Urinary tract infection type: acute cystitis Hematuria presence: without hematuria Qualified Code(s): N30.00 - Acute cystitis without hematuria Disposition: Home, Self-Care Condition: (1) Good Instructions: Urinary Tract Infection in Women (ED) Additional Instructions: follow up with family doctor. return sooner if worse. push fluids Prescriptions: Cephalexin [Keflex] 500 mg PO BID #10 cap Forms: Patient Portal Access Quality - Quality Measures Quality Measures: N/A - Blood Pressure Screening Does Patient Have Any of the Following: No Blood Pressure Classification: Hypertensive Reading Systolic Measurement: 166 Diastolic Measurement: 64 Screening for High Blood Pressure: < First Hypertensive BP, F/U Documented > [ [id number]] First Hypertensive Follow-up Interventions: Follow-up with rescreen GT 1 day and LT 4 weeks.
[2018-03-10 15:51] LABS: BASO % 0.1 % (0-6); EOS % 1.1 % (0-6); GRAN % 63.6 % (47-80); HEMATOCRIT 34.5 % (35.0-47.0); HEMOGLOBIN 10.9 gm/dl (11.6-16.0); LYMPH % 30.3 % (16-45); MEAN CELL VOLUME 84.1 fl (81-97); MEAN CORPUSCULAR HGB CONC 31.6 g/dl (32-36); MEAN PLATELET VOLUME 9.5 fl (7.4-10.4); MONO % 4.9 % (0-9); PLATELET COUNT 212 K/uL (130-400); RED CELL DISTRIBUTION WIDTH 15.3 % (11.5-14.5); WHITE BLOOD COUNT W/O DIFF 14.9 K/uL (4.2-12.2)
[2018-03-10 15:52] LABS: MEAN CORPUSCULAR HEMOGLOBIN 26.5 pg (27-33)
[2018-03-10] MEDS ORDERED: ONDANSETRON HCL IV 4 MG/2 ML VIAL IVP ONE (16:03)
[2018-03-10 16:05] LABS: BLOOD UREA NITROGEN 25 mg/dL (8-23); CREATININE 0.7 mg/dL (0.5-0.9); EST GLOMERULAR FILTRATION RATE > 60 mL/min
[2018-03-10 16:06] LABS: TOTAL PROTEIN 6.4 g/dL (6.6-8.7)
[2018-03-10 16:08] LABS: GLUCOSE,RANDOM 161 mg/dL (74-109)
[2018-03-10 16:10] LABS: ALT/SGPT < 5 U/L (<33); AST/SGOT 14 U/L (10.0-35.0)
[2018-03-10 16:11] LABS: ALB/GLOB RATIO 1.3 (1.1-1.8); ALBUMIN 3.6 g/dL (4.0-5.0); ALKALINE PHOSPHATASE 43 U/L (35-104)
[2018-03-10 17:43] LABS: URINE APPEARANCE CLEAR; URINE BILIRUBIN NEGATIVE (NEGATIVE); URINE BLOOD NEGATIVE (NEGATIVE); URINE COLOR YELLOW; URINE GLUCOSE (UA) NEGATIVE (NEGATIVE); URINE KETONE NEGATIVE (NEGATIVE); URINE LEUKOCYTE ESTERASE SMALL (NEGATIVE); URINE NITRITE NEGATIVE (NEGATIVE); URINE PROTEIN NEGATIVE (NEGATIVE); URINE UROBILINOGEN 0.2 E.U./dL (0.20 - 1.00)
[2018-03-10 17:53] LABS: URINE RBC NONE SEEN (NONE SEEN)
[2018-03-10 17:54] LABS: URINE BACTERIA 2+; URINE EPITHELIAL CELLS 0 - 2 (FEW); URINE TRANSITIONAL EPI CELLS 0 - 2 /hpf
[2018-03-10] MEDS ORDERED: CEPHALEXIN 500 MG CAPSULE PO STA (18:19)
--- NOTE | 2018-03-11 07:45 | RADIOLOGY REPORT ---
EXAM: CHEST, TWO VIEWS HISTORY: HISTORY OF UTI. STATUS POST CABG. TECHNIQUE: Frontal and lateral views of the chest were obtained. Comparison: 10/03/16. FINDINGS: Status post median sternotomy with postoperative changes related to a previous CABG and aortic valve replacement. A vascular stent projects in the region of the great vessels. Mild cardiomegaly is unchanged. No new focal air space opacity or overt pulmonary edema. Evaluation of the lung apices predominantly the right lung apex is limited by the patient's stovall. There is a small right pleural effusion posteriorly. IMPRESSION: SMALL RIGHT PLEURAL EFFUSION. JOB NUMBER: [id number] [facility]
== END 2018-03-10 18:56 | disposition home or self-care (01) ==
LOC: ER 15:09
DX: E86.0 Dehydration (principal); N30.00 Acute cystitis without hematuria; R53.1 Weakness; R11.2 Nausea with vomiting, unspecified; E11.9 Type 2 diabetes mellitus without complications; Z95.5 Presence of coronary angioplasty implant and graft; Z86.73 Personal history of transient ischemic attack (TIA), and cerebral infarction without residual deficits
CPT/HCPCS: 71046; 80053; 81001; 85025; 96360; 96361; 99284; J7030